=== PATIENT | male | born 1980 | race Caucasian/White ===

== ENCOUNTER 2020-10-12 03:31 | Inpatient (IN) ==
[2020-10-12] MEDS ORDERED: KETOROLAC TROMETHAMINE 15 MG/ML VIAL IV STA (04:01)
--- NOTE | 2020-10-12 04:09 | Emergency Department Note ---
History of Present Illness General Chief complaint: Chest Pain Stated complaint: +COVID/ CHEST PAIN SOB Time Seen by Provider: 10/12/20 03:37 Source: patient Mode of arrival: EMS Limitations: no limitations History of Present Illness This patient is a 40-year-old male who presents to the emergency department via EMS from [facility] for evaluation of chest pain. Patient tested positive for COVID-19 4 days ago. He states that he has had symptoms for about 2 weeks. He has had body aches, cough, fevers and malaise. He states that yesterday morning, he woke up and noticed some chest pain. The pain resolved and he felt fine throughout the day. He states that last night around 11 PM (4 hours prior to arrival), he was laying in bed and the pain came back. He describes this as a pressure across his chest. Pain is worse when he is laying flat. He rates his pain a 5/10. He states it has improved somewhat since it started. He re ports some associated shortness of breath. Patient states he is a diabetic and reports history of hypertension and hyperlipidemia. He reports a family history of heart disease in his mother, denies any personal history of heart disease. He is a smoker. He denies leg pain/swelling. Patient was given 324 mg aspirin prior to arrival by EMS. Home Medications Medication Instructions Recorded Confirmed Type acetaminophen [Tylenol Extra 500 mg PO TID PRN 10/12/20 10/12/20 History Strength] amlodipine 10 mg PO DAILY 10/12/20 10/12/20 History ammonium lactate 1 applic TOPICAL BID 10/12/20 10/12/20 History atorvastatin 80 mg PO HS 10/12/20 10/12/20 History cholecalciferol (vitamin D3) 25 mcg PO DAILY 10/12/20 10/12/20 History [Vitamin D3] gabapentin 1,200 mg PO BID 10/12/20 10/12/20 History guaifenesin [Mucosa] 400 mg PO TID PRN 10/12/20 10/12/20 History hydrochlorothiazide 12.5 mg PO QAM 10/12/20 10/12/20 History ibuprofen 400 mg PO TID PRN 10/12/20 10/12/20 History insulin NPH isoph U-100 human See Rx Instructions .ROUTE .COMPLEX 10/12/20 10/12/20 History [Novolin N NPH U-100 Insulin] insulin glargine [Lantus U-100 10 unit SUBCUT QAM 10/12/20 10/12/20 History Insulin] insulin regular human [Novolin R 0 unit SUBCUT AC 10/12/20 10/12/20 History Regular U-100 Insuln] levalbuterol tartrate [Xopenex HFA] 2 inh INHALATION Q6H PRN 10/12/20 10/12/20 History lisinopril 40 mg PO DAILY 10/12/20 10/12/20 History omeprazole 20 mg PO DAILYBB 10/12/20 10/12/20 History ondansetron HCl [Zofran] 4 mg PO TID PRN 10/12/20 10/12/20 History oxymetazoline 2 spray INTRANASAL Q12H PRN 10/12/20 10/12/20 History zinc sulfate [Orazinc] 220 mg PO BID 10/12/20 10/12/20 History Allergies Allergy/AdvReac Type Severity Reaction Status Date / Time Penicillins Allergy Unknown ON MED LIST Verified 10/12/20 03:42 Past Med/Surg History Medical History (Updated 10/12/20 @ 06:22 by Marybeth Alford PA-C) Asthma Dyslipidemia GERD (gastroesophageal reflux disease) Hypertension Peripheral neuropathy Type 2 diabetes mellitus Family History Mother Heart disease Social History Smoking Status: Current every day smoker Tobacco Type: E-cigarettes / Vaping Feels Safe at Home: Yes Review of Systems A total of 10 systems reviewed and were otherwise negative Physical Exam Vital Signs Vital Signs - 24 hr 10/12/20 03:40 10/12/20 04:00 10/12/20 04:30 Temperature 37 C Temperature Source Oral Pulse Rate 115 H 107 H 104 H Pulse Rate from SpO2 Sensor 106 H 97 H Pulse Rhythm Regular Respiratory Rate 20 20 20 Respiratory Effort / Characteristics Non-Labored Spontaneous Respiratory Depth Normal Respiratory Pattern Regular Blood Pressure 151/112 H 140/93 130/85 Blood Pressure Mean 125 108 100 Blood Pressure Position Lying Pulse Oximetry 99 97 95 Oxygen Delivery Method Room Air Room Air Sepsis Recent Fever Within 48 Hours No Sepsis New/Unexplained Change in Mental Status No Sepsis Action Taken by Nursing No Action Required 10/12/20 05:00 10/12/20 05:32 10/12/20 06:00 Temperature Temperature Source Pulse Rate 97 H 100 H 98 H Pulse Rate from SpO2 Sensor 97 H 104 H 98 H Pulse Rhythm Respiratory Rate 23 24 22 Respiratory Effort / Characteristics Respiratory Depth Respiratory Pattern Blood Pressure 144/79 H 135/78 129/69 Blood Pressure Mean 100 97 89 Blood Pressure Position Pulse Oximetry 95 96 97 Oxygen Delivery Method Room Air Room Air Room Air Sepsis Recent Fever Within 48 Hours Sepsis New/Unexplained Change in Mental Status Sepsis Action Taken by Nursing VITALS: Vitals are noted on the nurse's note and reviewed by myself. GENERAL: This is a 40-year-old male, sitting up in bed, uncomfortable appearing, well-developed well-nourished. SKIN: The skin was without rashes. EARS: External auditory canals clear, tympanic membranes pearly herrera without erythema or effusion bilaterally. EYES: Pupils equal round and reactive to light and accommodation. MOUTH: Mucous membranes moist. Tonsils are not enlarged. Pharynx without erythema or exudate. NECK: Supple without nuchal rigidity. No lymphadenopathy. HEART: Regular rate and rhythm without murmurs gallops or rubs. LUNGS: Clear to auscultation bilaterally without wheezes, rales or rhonchi. No retractions or accessory muscle use. ABDOMEN: Positive bowel sounds x 4. Soft, nontender to palpation. EXTREMITIES: No edema of the lower extremities. No calf tenderness. NEURO: Patient was alert and oriented to person place and time. Course Consultations [facility]ations Heparin Sodium/Dextrose (Heparin Sodium/Dextrose) 25,000 units in 500 mls @ 36 mls/hr IV .[id number] [facility]; Protocol Stop: 11/11/20 05:44 Last Admin: 10/12/20 06:00 Dose: 1,800 units/hr, 36 mls/hr Documented by: [id number] Cosigned by: [id number] Discontinued Medications Heparin Sodium/Dextrose (Heparin Iv Standard *No* Bolus) 1 ea IV ONE ONE; Protocol Stop: 10/12/20 05:35 Last Admin: 10/12/20 06:04 Dose: 1 ea Documented by: [id number] Ketorolac Tromethamine (Ketorolac Tromethamine 15 Mg/Ml Vial) 15 mg IV NOW STA Stop: 10/12/20 04:02 Last Admin: 10/12/20 04:12 Dose: 15 mg Documented by: [id number] Medical Decision Making Differential Diagnosis Differential diagnosis includes acute coronary syndrome, pulmonary embolism, pneumothorax, pericarditis, myocarditis, endocarditis, anxiety, musculoskeletal pain, GERD, costochondritis, pneumonia, among others. Home Medications Current Medication List: was personally reviewed by me Laboratory Data Attestation: I reviewed the patient's lab results. Result diagrams: 10/12/20 03:50 10/12/20 03:50 Lab Results 10/12/20 10/12/20 10/12/20 Range/Units 03:50 03:50 03:50 WBC 11.13 H (4.8-10.8) K/uL RBC 5.05 (4.7-6.1) M/uL Hgb 13.4 L (14.0-18.0) g/dL Hct 40.1 L (42-52) % MCV 79.4 L (80-100) fL MCH 26.5 (25-34) pg MCHC 33.4 (32-36) g/dL RDW Std Deviation 39.2 (36.4-46.3) fL RDW Coeff of Laureen 13.8 (11.5-14.5) % Plt Count 544 H (130-400) K/uL MPV 10.6 H (7.4-10.4) fL Immature Gran % (Auto) 0.4 % Neut % (Auto) 73.1 % Lymph % (Auto) 17.7 % Sawyer % (Auto) 7.6 % Eos % (Auto) 0.9 % Baso % (Auto) 0.3 % Neut # (Auto) 8.14 H (1.4-6.5) K/uL Lymph # (Auto) 1.97 (1.2-3.4) K/uL Sawyer # (Auto) 0.85 H (0.11-0.59) K/uL Eos # (Auto) 0.10 (0-0.5) K/uL Baso # (Auto) 0.03 (0-0.2) K/uL Immature Gran # (Auto) 0.04 H (0.00-0.02) K/uL D-Dimer 250 (0-500) ug/L FEU Sodium 135 L (136-145) mmol/L Potassium 3.7 (3.5-5.1) mmol/L Chloride 100 (98-107) mmol/L Carbon Dioxide 24 (21-32) mmol/L Anion Gap 11.0 (3-11) BUN 18 (7-18) mg/dl Creatinine 1.08 (0.6-1.4) mg/dl Est Cr Clr Drug Dosing 126.6 ml/min Est GFR ( Amer) 97.6 Est GFR (Non-Af Amer) 84.2 BUN/Creatinine Ratio 16.8 (10-20) Glucose 229 H (70-99) mg/dl Calcium 9.2 (8.5-10.1) mg/dl Total Bilirubin 0.5 (0.2-1) mg/dl AST 33 (15-37) U/L ALT 56 (12-78) U/L Alkaline Phosphatase 67 (45-117) U/L Troponin I 0.846 H* (0-0.045) ng/ml Total Protein 8.5 H (6.4-8.2) gm/dl Albumin 3.8 (3.4-5.0) gm/dl Globulin 4.7 H (2.5-4.0) gm/dl Albumin/Globulin Ratio 0.8 L (0.9-2) Imaging Data Attestation: I personally reviewed and interpreted this imaging study as follows: My Impression: CHEST 1 VIEW: Mild bilateral interstitial opacities. ECG Data Attestation: I personally reviewed and interpreted this ECG as follows: Indication: + chest pain Rate (beats per minute): 116 Rhythm: + sinus tachycardia ECG Intervals/blocks: + Normal QRS ECG ST segments: + T-wave inversions (Inferior) Comparison ECG Date: no prior available MDM Narrative Continuous compliance monitor: Order was placed for continuous compliance monitor. Patient was placed on the compliance monitor. Patient was noted to be in sinus tachycardia at an initial rate of 115 bpm. The patient is a 40-year-old male who presents today complaining of chest pain. Patient is an inmate at [facility] and tested positive for COVID-19 4 days ago. He currently complains of pain across the front of his chest which is worse when he lays back flat. His labs revealed a mild leukocytosis of 11.13, mild anemia with hemoglobin 13.4, thrombocytosis with platelet count of 544. D-dimer was not elevated. Glucose elevated at 229 consistent with patient's history of diabetes, otherwise no concerning electrolyte abnormalities. Patient's troponin found to be elevated at 0.846. EKG shows some T wave inversions, but no ST elevation. Patient was treated with aspirin prior to arrival. He was given Toradol here as I am suspicious of a viral myocarditis. Patient's case was discussed with Dr. Cortes, [facility] hospitalist, who agreed to evaluate the patient for further care. Impression & Plan Substernal chest pain, COVID-19, Elevated troponin I level Discharge Plan Visit Data Chief Complaint: Chest Pain Stated Complaint: +COVID/ CHEST PAIN SOB ED Provider: Michael [facility] ED Midlevel Provider: Marybeth Alford Discharge Problem: Substernal chest pain, COVID-19, Elevated troponin I level Forms Stand Alone Forms: My [facility] Prescriptions Prescriptions: No Action atorvastatin 80 mg Tablet 80 mg PO HS RF: 0 gabapentin 600 mg Tablet 1,200 mg PO BID RF: 0 Lantus U-100 Insulin 100 unit/mL Solution 10 unit SUBCUT QAM RF: 0 ondansetron HCl [Zofran] 4 mg Tablet 4 mg PO TID PRN (Reason: NAUSEA/VOMITING) RF: 0 acetaminophen [Tylenol Extra Strength] 500 mg Tablet 500 mg PO TID PRN (Reason: Pain) RF: 0 amlodipine 10 mg Tablet 10 mg PO DAILY RF: 0 Novolin R Regular U-100 Insuln 100 unit/mL Solution 0 unit SUBCUT AC RF: 0 ibuprofen 400 mg Tablet 400 mg PO TID PRN (Reason: COVID SYMPTOMS) RF: 0 Novolin N NPH U-100 Insulin 100 unit/mL Suspension See Rx Instructions .ROUTE .COMPLEX RF: 0 ammonium lactate 12 % Cream 1 applic TOPICAL BID RF: 0 lisinopril 40 mg Tablet 40 mg PO DAILY RF: 0 cholecalciferol (vitamin D3) [Vitamin D3] 25 mcg (1,000 unit) Capsule 25 mcg PO DAILY RF: 0 guaifenesin [Mucosa] 400 mg Tablet 400 mg PO TID PRN (Reason: Cold Symptoms) RF: 0 oxymetazoline 0.05 % [place],Non-Aerosol 2 spray INTRANASAL Q12H PRN (Reason: Nasal Congestion) RF: 0 levalbuterol tartrate [Xopenex HFA] 45 mcg/actuation Hfa Aerosol Inhaler 2 inh INHALATION Q6H PRN (Reason: Shortness Of Breath) RF: 0 zinc sulfate [Orazinc] 220 (50) mg Capsule 220 mg PO BID RF: 0 hydrochlorothiazide 12.5 mg Tablet 12.5 mg PO QAM RF: 0 omeprazole 20 mg Tablet,Delayed Release (Dr/Ec) 20 mg PO DAILYBB RF: 0
[2020-10-12 04:17] LABS: Basophils # (auto) 0.03 K/uL (0-0.2); Basophils % (auto) 0.3 %; Eosinophils % (auto) 0.9 %; Hematocrit (blood only) 40.1 % (42-52); Hemoglobin 13.4 g/dL (14.0-18.0); Immature Granulocytes # (auto) 0.04 K/uL (0.00-0.02); Immature Granulocytes % (auto) 0.4 %; Lymphocytes # (auto) 1.97 K/uL (1.2-3.4); Lymphocytes % (auto) 17.7 %; Mean Corpuscular Hemoglobin 26.5 pg (25-34); Mean Corpuscular Hgb Conc 33.4 g/dL (32-36); Mean Corpuscular Volume 79.4 fL (80-100); Mean Platelet Volume 10.6 fL (7.4-10.4); Monocytes # (auto) 0.85 K/uL (0.11-0.59); Monocytes % (auto) 7.6 %; Neutrophils # (auto) 8.14 K/uL (1.4-6.5); Neutrophils % (auto) 73.1 %; Platelet Count 544 K/uL (130-400); RDW Coefficient of Variation 13.8 % (11.5-14.5); RDW Standard Deviation 39.2 fL (36.4-46.3); Red Blood Count 5.05 M/uL (4.7-6.1); White Blood Count 11.13 K/uL (4.8-10.8)
[2020-10-12 04:28] LABS: D Dimer 250 ug/L FEU (0-500)
[2020-10-12 04:37] LABS: Albumin Level 3.8 gm/dl (3.4-5.0); BUN Creatinine Ratio 16.8 (10-20); Calcium 9.2 mg/dl (8.5-10.1); Creatinine Clr Calc Pharmacy 126.6 ml/min; Est GFR (African American) 97.6; Est GFR (Non-African American) 84.2; Potassium 3.7 mmol/L (3.5-5.1)
[2020-10-12 04:45] LABS: Albumin Globulin Ratio 0.8 (0.9-2); Bilirubin,Total 0.5 mg/dl (0.2-1); Globulin 4.7 gm/dl (2.5-4.0); Total Protein 8.5 gm/dl (6.4-8.2); Troponin I 0.846 ng/ml (0-0.045)
[2020-10-12] MEDS ORDERED: Heparin IV Adult Wt-Based Standard *NO* Bolus Protocol IV ONE (05:34)
[2020-10-12] MEDS ORDERED: HEPARIN SODIUM/DEXTROSE 25,000 UNITS/500 ML BAG IV SCH (05:45)
--- NOTE | 2020-10-12 06:02 | History & Physical Report ---
Date of Service October 12, 2020 Assessment & Plan (1) Elevated troponin I level: Elevated troponin I level with chest pain/hypertension- Main differential is non-STEMI versus COVID-19 myocarditis. The patient will be admitted to telemetry for serial cardiac enzymes, serial EKG's, cardiac rhythm monitoring and a 2-D echocardiogram with Dopplers. Start heparin drip IV standard dosing without bolus to address both potential issues Continue amlodipine 10 mg daily, lisinopril 40 mg daily, aspirin 81 mg daily Hold HCTZ He did receive Toradol 15 mg IV from the ED, to hold on any further doses Consult cardiology Present on Admission?: Yes (2) COVID-19: Give a single dose of dexamethasone 6 mg IV now. Depending upon response will determine whether the patient continues with dexamethasone 6 mg IV daily Present on Admission?: Yes (3) Type 2 diabetes mellitus: Increase Lantus insulin from 10 units to 20 units subcu every morning. Hold insulin NPH. Place on Accu-Cheks before meals and at bedtime with NovoLog coverage for scale Present on Admission?: Yes (4) Dyslipidemia: Continue atorvastatin 80 mg in the evening Present on Admission?: Yes (5) Hypertension: See above Present on Admission?: Yes (6) GERD (gastroesophageal reflux disease): Change omeprazole to pantoprazole Present on Admission?: Yes (7) Asthma: Continue Xopenex HFA 2 puffs every 6 hours as needed Present on Admission?: Yes (8) Peripheral neuropathy: Continue gabapentin 1200 mg p.o. twice daily Present on Admission?: Yes History of Present Illness Chief Complaint: The patient is brought to the emergency department from [facility] for assessment of chest pain that began yesterday, that did not improve last evening, then worsened upon waking up this morning. Primary Care Provider: [facility] The patient is a 40-year-old male with a past medical history of hypertension, hyperlipidemia, peripheral neuropathy, insulin dependent diabetes mellitus, asthma, GERD, allergic rhinitis and recent diagnosis of Covid 19 infection 4 days ago. He reports his symptoms of Covid infection began about 2 weeks ago, that is primarily were concerning for generalized fatigue and weakness, and body aches and nonproductive cough. Yesterday was the first that he developed chest pain, and as stated above, it did resolve, but did return this morning after awakening. He has a family history of his mother with having had a heart attack, but no other family members with coronary disease. Allergies Allergy/AdvReac Type Severity Reaction Status Date / Time Penicillins Allergy Unknown ON MED LIST Verified 10/12/20 03:42 Home Medications Medication Instructions Recorded Confirmed Type acetaminophen [Tylenol Extra 500 mg PO TID PRN 10/12/20 10/12/20 History Strength] amlodipine 10 mg PO DAILY 10/12/20 10/12/20 History ammonium lactate 1 applic TOPICAL BID 10/12/20 10/12/20 History atorvastatin 80 mg PO HS 10/12/20 10/12/20 History cholecalciferol (vitamin D3) 25 mcg PO DAILY 10/12/20 10/12/20 History [Vitamin D3] gabapentin 1,200 mg PO BID 10/12/20 10/12/20 History guaifenesin [Mucosa] 400 mg PO TID PRN 10/12/20 10/12/20 History hydrochlorothiazide 12.5 mg PO QAM 10/12/20 10/12/20 History ibuprofen 400 mg PO TID PRN 10/12/20 10/12/20 History insulin NPH isoph U-100 human See Rx Instructions .ROUTE .COMPLEX 10/12/20 10/12/20 History [Novolin N NPH U-100 Insulin] insulin glargine [Lantus U-100 10 unit SUBCUT QAM 10/12/20 10/12/20 History Insulin] insulin regular human [Novolin R 0 unit SUBCUT AC 10/12/20 10/12/20 History Regular U-100 Insuln] levalbuterol tartrate [Xopenex HFA] 2 inh INHALATION Q6H PRN 10/12/20 10/12/20 History lisinopril 40 mg PO DAILY 10/12/20 10/12/20 History omeprazole 20 mg PO DAILYBB 10/12/20 10/12/20 History ondansetron HCl [Zofran] 4 mg PO TID PRN 10/12/20 10/12/20 History oxymetazoline 2 spray INTRANASAL Q12H PRN 10/12/20 10/12/20 History zinc sulfate [Orazinc] 220 mg PO BID 10/12/20 10/12/20 History Past Med/Surg History Medical History Dyslipidemia Hypertension Type 2 diabetes mellitus Family History Mother Heart disease Social History Smoking Status: Current every day smoker Tobacco Type: E-cigarettes / Vaping Feels Safe at Home: Yes Review of Systems Review of Systems: The patient denies palpitations, lower extremity swelling, sore throat, chills, sweats, nausea, vomiting, diarrhea , constipation, abdominal pain, pelvic pain, blood in urine or stool, dysuria, urinary frequency or urgency, lightheadedness, dizziness, headache, memory loss, loss of consciousness, rash, abnormal bruising or bleeding, imbalance, focal or generalized weakness, numbness or tingling in arms or legs, back or neck pain, or night sweats. The review of systems is otherwise negative other than for that already noted above, and at least 10 systems have been reviewed. Physical Exam Physical Exam: The patient is awake, alert and oriented 3, well developed and well nourished, normocephalic and atraumatic, lying in bed and in no acute distress. HEENT--PERRL, EOMI, mucous membranes and oropharynx normal. Neck--supple. No JVD. No bruits. Thyroid normal, trachea midline, no adenopathy. Heart--normal S1 and S2. No murmurs, rubs or gallops. Lungs--clear bilaterally, no respiratory distress, no accessory muscle use. Abdomen--normal bowel sounds and soft. Nontender. Nondistended. Morbidly obese Extremities--no cyanosis or clubbing. No edema. Dermatologic--normal skin turgor, normal color, no abnormal lymph nodes, no rash. Neurologic--cranial nerves II through XII grossly intact. Rheumatologic--normal range of motion. Psychiatric--normal affect. Results & Data Results & Data ([facility]) Vital Signs (Past 12 Hours) Vital Signs Temp Pulse Resp BP Pulse Ox 10/12/20 05:00 97 H 23 144/79 H 95 10/12/20 04:30 104 H 20 130/85 95 10/12/20 04:00 107 H 20 140/93 97 10/12/20 03:40 98.6 F 115 H 20 151/112 H 99 Laboratory Results Laboratory Results WBC 11.13 K/uL (4.8-10.8) H 10/12/20 03:50 RBC 5.05 M/uL (4.7-6.1) 10/12/20 03:50 Hgb 13.4 g/dL (14.0-18.0) L 10/12/20 03:50 Hct 40.1 % (42-52) L 10/12/20 03:50 MCV 79.4 fL (80-100) L 10/12/20 03:50 MCH 26.5 pg (25-34) 10/12/20 03:50 MCHC 33.4 g/dL (32-36) 10/12/20 03:50 RDW Std Deviation 39.2 fL (36.4-46.3) 10/12/20 03:50 RDW Coeff of Laureen 13.8 % (11.5-14.5) 10/12/20 03:50 Plt Count 544 K/uL (130-400) H 10/12/20 03:50 MPV 10.6 fL (7.4-10.4) H 10/12/20 03:50 Immature Gran % (Auto) 0.4 % 10/12/20 03:50 Neut % (Auto) 73.1 % 10/12/20 03:50 Lymph % (Auto) 17.7 % 10/12/20 03:50 Ralls % (Auto) 7.6 % 10/12/20 03:50 Eos % (Auto) 0.9 % 10/12/20 03:50 Baso % (Auto) 0.3 % 10/12/20 03:50 Neut # (Auto) 8.14 K/uL (1.4-6.5) H 10/12/20 03:50 Lymph # (Auto) 1.97 K/uL (1.2-3.4) 10/12/20 03:50 Ralls # (Auto) 0.85 K/uL (0.11-0.59) H 10/12/20 03:50 Eos # (Auto) 0.10 K/uL (0-0.5) 10/12/20 03:50 Baso # (Auto) 0.03 K/uL (0-0.2) 10/12/20 03:50 Immature Gran # (Auto) 0.04 K/uL (0.00-0.02) H 10/12/20 03:50 D-Dimer 250 ug/L FEU (0-500) 10/12/20 03:50 Sodium 135 mmol/L (136-145) L 10/12/20 03:50 Potassium 3.7 mmol/L (3.5-5.1) 10/12/20 03:50 Chloride 100 mmol/L (98-107) 10/12/20 03:50 Carbon Dioxide 24 mmol/L (21-32) 10/12/20 03:50 Anion Gap 11.0 (3-11) 10/12/20 03:50 BUN 18 mg/dl (7-18) 10/12/20 03:50 Creatinine 1.08 mg/dl (0.6-1.4) 10/12/20 03:50 Est Cr Clr Drug Dosing 126.6 ml/min 10/12/20 03:50 Est GFR ( Amer) 97.6 10/12/20 03:50 Est GFR (Non-Af Amer) 84.2 10/12/20 03:50 BUN/Creatinine Ratio 16.8 (10-20) 10/12/20 03:50 Glucose 229 mg/dl (70-99) H 10/12/20 03:50 Calcium 9.2 mg/dl (8.5-10.1) 10/12/20 03:50 Total Bilirubin 0.5 mg/dl (0.2-1) 10/12/20 03:50 AST 33 U/L (15-37) 10/12/20 03:50 ALT 56 U/L (12-78) 10/12/20 03:50 Alkaline Phosphatase 67 U/L (45-117) 10/12/20 03:50 Troponin I 0.846 ng/ml (0-0.045) H* 10/12/20 03:50 Total Protein 8.5 gm/dl (6.4-8.2) H 10/12/20 03:50 Albumin 3.8 gm/dl (3.4-5.0) 10/12/20 03:50 Globulin 4.7 gm/dl (2.5-4.0) H 10/12/20 03:50 Albumin/Globulin Ratio 0.8 (0.9-2) L 10/12/20 03:50 Code Status & VTE Plan Code Status Full code VTE Prophylaxis Plan VTE Prophylaxis will be ordered: Yes PG Care Time/CCT Total # of Minutes Spent Total Time Spent with Patient: Total time spent is greater than 50% in coordination of care (as documented) at patient's floor/unit and/or counseling patient: Coding Level of Care Code 17866 Initial Inpt Care Lvl 3 Diagnoses Elevated troponin I level R77.8 COVID-19 U07.1 Type 2 diabetes mellitus E11.9 Dyslipidemia E78.5 Hypertension I10 GERD (gastroesophageal reflux disease) K21.9 Asthma J45.909 Peripheral neuropathy G62.9
[2020-10-12 06:34] LABS: Partial Thromboplastin Ratio 1.1; Partial Thromboplastin Time 27.9 Seconds (21.0-31.0)
--- NOTE | 2020-10-12 06:45 | XRay Report ---
XR chest 1V portable HISTORY: 40 years-old Male Chest Pain acute atypical chest pain COMPARISON: None TECHNIQUE: Portable AP view of the chest FINDINGS: Cardiomediastinal and hilar silhouettes are within normal limits. No pneumothorax, pleural effusion, overt pulmonary edema or lobar airspace consolidation. Questioned subtle interstitial opacities. Bone s of the chest appear grossly intact. IMPRESSION: Questioned subtle interstitial opacities may be secondary to summation density versus an interstitial pneumonitis. ACT 112: Negative or not required by law. The above report was generated using voice recognition software. It may contain grammatical, syntax o r spelling errors. Electronically signed by: Glen Cifuentes M.D. 10/12/2020 6:44 AM
[2020-10-12] MEDS ORDERED: IBUPROFEN 200 MG TAB PO PRN (07:46)
[2020-10-12] MEDS ORDERED: ACETAMINOPHEN HOME PACK 500 MG TABLET PO PRN (07:46)
[2020-10-12] MEDS ORDERED: GLUCOSE 10 TABS/TUBE PO PRN (07:46)
[2020-10-12] MEDS ORDERED: GLUCAGON FOR INJ 1 MG VIAL SQ PRN (07:46)
[2020-10-12] MEDS ORDERED: LEVALBUTEROL TARTRATE 15 GM HFA.AER.AD INH PRN (07:46)
[2020-10-12] MEDS ORDERED: ONDANSETRON INJ 2 MG/ML 2 ML VIAL IV PRN (07:46)
[2020-10-12] MEDS ORDERED: GLUCOSE 40% GEL 15 GM TUBE PO PRN (07:46)
[2020-10-12] MEDS ORDERED: ACETAMINOPHEN 325 MG TAB PO PRN (07:46)
[2020-10-12] MEDS ORDERED: DEXTROSE 50% 50 ML SYRINGE IV PRN (07:46)
[2020-10-12] MEDS ORDERED: CARBOHYDRATES FOR HYPOGLYCEMIA PO PRN (07:46)
[2020-10-12] MEDS ORDERED: NITROGLYCERIN SL 0.4 MG/TAB TAB SL PRN (07:46)
[2020-10-12] MEDS: ZINC SULFATE 220 MG CAPSULE PO SCH ×2 (08:32→20:51)
[2020-10-12] MEDS: amLODIPine BESYLATE 5 MG TAB PO SCH (08:32)
[2020-10-12] MEDS: CHOLECALCIFEROL 1,000 UNITS 25 MCG TAB PO SCH (08:32)
[2020-10-12] MEDS: lisinopril 40 MG TAB PO SCH (08:33)
[2020-10-12] MEDS: GABAPENTIN 600 MG TAB PO SCH ×2 (08:33→20:50)
[2020-10-12] MEDS ORDERED: AMMONIUM LACTATE 12% LOTION 225 GM BTL EXT SCH (09:00)
[2020-10-12] MEDS: INSULIN ASPART 100 UNITS/ML 3 ML PEN SC SCH ×4 (09:23→20:53)
[2020-10-12] MEDS: INSULIN GLARGINE SOLOSTAR 100 UNITS/ML 3 ML PEN SQ SCH (09:24)
[2020-10-12] MEDS: AMMONIUM LACTATE 12% LOTION 225 GM BTL EXT SCH ×2 (09:27→20:49)
[2020-10-12 09:46] LABS: Chol HDL Ratio 4; Cholesterol 162 mg/dl (0-200); HDL Cholesterol 38 mg/dl; LDL Cholesterol Calculated 90 mg/dl; Triglycerides 171 mg/dl (0-150); VLDL Cholesterol 34 mg/dl
[2020-10-12] MEDS ORDERED: METOPROLOL TARTRATE 25 MG TAB PO STA (12:18)
[2020-10-12] MEDS ORDERED: ASPIRIN 81 MG CHEW PO STA (12:20)
[2020-10-12 12:29] LABS: Partial Thromboplastin Time 52.5 Seconds (21.0-31.0)
--- NOTE | 2020-10-12 13:01 | Pre Anesthesia Assessment ---
Date of Service October 12, 2020 Pre Sedation Assessment Vital Signs Temp Pulse Pulse Resp BP BP BP 10/12/20 11:40 37 C 88 18 127/80 10/12/20 07:41 37.1 C 106 H 18 161/92 H 10/12/20 06:30 100 H 22 121/69 10/12/20 06:00 98 H 22 129/69 10/12/20 05:32 100 H 24 135/78 10/12/20 05:00 97 H 23 144/79 H 10/12/20 04:30 104 H 20 130/85 10/12/20 04:00 107 H 20 140/93 10/12/20 03:40 37 C 115 H 20 151/112 H Pulse Ox 10/12/20 11:40 97 10/12/20 07:41 100 10/12/20 06:30 97 10/12/20 06:00 97 10/12/20 05:32 96 10/12/20 05:00 95 10/12/20 04:30 95 10/12/20 04:00 97 10/12/20 03:40 99 Cardiovascular RRR, no murmur, no edema Respiratory normal respiratory effort, lungs clear to auscultation Pre-Sedation Airway Assessment Smoking Status: Current every day smoker Mallampati Class: II ASA: ASA3 NPO Status Date of Last Intake of Fluids: 10/12/20 Time of Last Intake of Fluids: 12:00 Date of Last Intake of Solid Food: 10/12/20 Time of Last Intake of Solid Foods: 12:00 Last Intake of Solids Comment: Partial lunch; unstable angina at rest last night. cath later today. Procedure Planning Contraindications for Sedation: none Current Medications Reviewed: Yes Notes The planned sedation has been discussed with the patient. Informed Consent was obtained. I have identified the patient, determined the appropriateness of se dation and have assessed the patient immediately prior to the procedure. All medicine(s) and interventions are by my order.
--- NOTE | 2020-10-12 13:27 | Cardiology Consultation ---
Date of Consultation October 12, 2020 Assessment & Plan (1) Non-ST elevation (NSTEMI) myocardial infarction: (2) Dyslipidemia: (3) Hypertension: (4) COVID-19: ASSESSMENT/PLAN: 1. NSTEMI: Symptoms classic for angina over the past 6 months with acute worsening last night with rest symptoms. Repeat troponin more significantly elevated at 7.65. Apical wall motion abnormality and anterior T-wave abnormalities suggest LAD CAD. Recommended cardiac catheterization. Risks and benefits were discussed with him in detail. He was made aware that CT surgery is not available this facility. Recommended aspirin and metoprolol 25 mg x 1 now. Optimize medical therapy. Continue high-intensity statin therapy, FABY- inhibitor. Start metoprolol 25 mg twice daily. On heparin drip as per primary service. 2. Dyslipidemia: Continue high-intensity statin therapy. LDL 90. Will replace atorvastatin with Crestor 40 mg daily. 3. Hypertension: Blood pressure has mostly been normotensive. Adding beta- lucrecia as above. Continue other outpatient medications. 4. COVID-19 infection: Reportedly had symptoms began approximately 14 days ago with positive test 4 days ago at his correctional facility. As per primary service. 5. Disposition: Patient care discussed with Dr. Sevilla of the primary hospitalist service. Cardiology will continue to follow. Cardiac catheterization today. Highly complex medical issues. Thank you for allowing me to participate in the care of your patient. Please call for any other questions or concerns. Sincerely, Carlos Marion M.D. History of Present Illness Reason for Consultation: NSTEMI Requesting Physician: Dr. Cortes Attending Physician: Dr. Sevilla History of Present Illness Mr. Chavez is a 40-year-old gentleman with a history significant for insulin- dependent type 2 diabetes, hypertension, dyslipidemia, tobacco abuse, and family history of CAD. He was admitted on 10/12/2020 with chest discomfort and elevated troponin. Cardiology was consulted for NSTEMI versus COVID-19 myocarditis. For the past 6 months, he has been experiencing exertional chest discomfort in the substernal area that can sometimes radiate to the neck and jaw. There is also associated shortness of breath. He sometimes has to stop to catch his breath before continuing ambulation. Last night, at approximately 11:00 p.m. while in bed, he experienced the same chest discomfort however more severe. It persisted for approximately 4 hours before subsiding. There was associated shortness of breath but no diaphoresis. The pain once again radiated to his neck and jaw. He described a substernal discomfort as a burning sensation. Yana baker remaining at the correctional facility, ambulation last night worsen his symptoms. He was given aspirin and transferred to the emergency department for further evaluation. By the time he arrived here, he had no chest discomfort. He has not had any further chest discomfort. He was placed on a heparin drip by the admitting hospitalist service. His initial troponin was 0.846. Initial ECG demonstrated inferior lateral T-wave abnormality, but no significant ST depression or elevation. Echocardiogram and repeat ECG were personally ordered. His echocardiogram demonstrated apical akinesis and ECG demonstrated anterior and lateral T-wave inversion, new compared to initial ECG. He remained in sinus rhythm. He denies melena, hematochezia, hematuria, or other bleeding. He denies edema, syncope, near-syncope, orthopnea, or palpitations. Approximately 14 days ago, he developed symptoms of shortness of breath, fatigue, myalgias, and nonproductive cough. He also had fevers which he b elieves lasted for approximately 10 days before subsiding. He was diagnosed with COVID-19 infection approximately 4 days ago and feels much better in that regard. Review of systems: As above. Review of systems otherwise negative/unremarkable. Family history: Mother had [place] in her 40s. He has 1 younger sister. Social history: He has smoked for many years and continues to smoke. No significant alcohol. No IV drugs. Not . No children. Originally from [facility]. Currently residing at [facility]. Senior Living guards accompanied him in his hospital room. Allergies Allergy/AdvReac Type Severity Reaction Status Date / Time Penicillins Allergy Unknown ON MED LIST Verified 10/12/20 03:42 Home Medications Medication Instructions Recorded Confirmed Type acetaminophen [Tylenol Extra 500 mg PO TID PRN 10/12/20 10/12/20 History Strength] amlodipine 10 mg PO DAILY 10/12/20 10/12/20 History ammonium lactate 1 applic TOPICAL BID 10/12/20 10/12/20 History atorvastatin 80 mg PO HS 10/12/20 10/12/20 History cholecalciferol (vitamin D3) 25 mcg PO DAILY 10/12/20 10/12/20 History [Vitamin D3] gabapentin 1,200 mg PO BID 10/12/20 10/12/20 History guaifenesin [Mucosa] 400 mg PO TID PRN 10/12/20 10/12/20 History hydrochlorothiazide 12.5 mg PO QAM 10/12/20 10/12/20 History ibuprofen 400 mg PO TID PRN 10/12/20 10/12/20 History insulin NPH isoph U-100 human See Rx Instructions .ROUTE .COMPLEX 10/12/20 10/12/20 History [Novolin N NPH U-100 Insulin] insulin glargine [Lantus U-100 10 unit SUBCUT QAM 10/12/20 10/12/20 History Insulin] insulin regular human [Novolin R 0 unit SUBCUT AC 10/12/20 10/12/20 History Regular U-100 Insuln] levalbuterol tartrate [Xopenex HFA] 2 inh INHALATION Q6H PRN 10/12/20 10/12/20 History lisinopril 40 mg PO DAILY 10/12/20 10/12/20 History omeprazole 20 mg PO DAILYBB 10/12/20 10/12/20 History ondansetron HCl [Zofran] 4 mg PO TID PRN 10/12/20 10/12/20 History oxymetazoline 2 spray INTRANASAL Q12H PRN 10/12/20 10/12/20 History zinc sulfate [Orazinc] 220 mg PO BID 10/12/20 10/12/20 History Patient History Medical History (Updated 10/12/20 @ 13:28 by Timothy Marion MD) Asthma Dyslipidemia GERD (gastroesophageal reflux disease) Hypertension Peripheral neuropathy Type 2 diabetes mellitus Family History Mother Heart disease Social History Smoking Status: Current every day smoker Tobacco Type: E-cigarettes / Vaping Cigarettes Per Day: 2 e cigarettes every 2 weeks; Hx Alcohol Use: No Hx Substance Use: Yes Last Used Substance: Unknown Preferred Language: French Communication Ability: Effective Trust Operations Assistant Required: No Beliefs That Will Affect Care: None Current Living Situation: Other Current Living Situation Comment: Senior Living Feels Safe at Home: Yes Assistive Devices: None Physical Exam Physical Exam: Gen.: No acute distress. Alert and oriented. HEENT: Anicteric sclera. Neck: No JVD. No bruits. Normal carotid upstrokes bilaterally. Cardiac: PMI was nonpalpable. No ventricular heave. Regular rate and rhythm. Normal S1-S2. No murmurs, rubs, or gallops. Pulmonary: Clear to auscultation bilaterally without wheezes, rales, or rhonchi. Abdomen: Soft, nontender, nondistended, with normoactive bowel sounds. No bruits noted. Extremities: 2+ radial pulses bilaterally. 2+ posterior tibialis pulses bilaterally. No edema or cyanosis. No palpable cords. Psychiatric: Affect appears appropriate. Results & Data ([facility]) Vital Signs (Past 12 Hours) Vital Signs Temp Pulse Pulse Resp BP BP Pulse Ox 10/12/20 07:41 37.1 C 106 H 18 161/92 H 100 10/12/20 06:30 100 H 22 121/69 97 10/12/20 06:00 98 H 22 129/69 97 10/12/20 05:32 100 H 24 135/78 96 10/12/20 05:00 97 H 23 144/79 H 95 10/12/20 04:30 104 H 20 130/85 95 10/12/20 04:00 107 H 20 140/93 97 10/12/20 03:40 37 C 115 H 20 151/112 H 99 Laboratory Results Laboratory Results - last 24 hr 10/12/20 10/12/20 10/12/20 03:50 03:50 03:50 WBC 11.13 H RBC 5.05 Hgb 13.4 L Hct 40.1 L MCV 79.4 L MCH 26.5 MCHC 33.4 RDW Std Deviation 39.2 RDW Coeff of Laureen 13.8 Plt Count 544 H MPV 10.6 H Immature Gran % (Auto) 0.4 Neut % (Auto) 73.1 Lymph % (Auto) 17.7 Leon % (Auto) 7.6 Eos % (Auto) 0.9 Baso % (Auto) 0.3 Neut # (Auto) 8.14 H Lymph # (Auto) 1.97 Leon # (Auto) 0.85 H Eos # (Auto) 0.10 Baso # (Auto) 0.03 Immature Gran # (Auto) 0.04 H APTT PTT Ratio D-Dimer 250 Sodium 135 L Potassium 3.7 Chloride 100 Carbon Dioxide 24 Anion Gap 11.0 BUN 18 Creatinine 1.08 Est Cr Clr Drug Dosing 126.6 Est GFR ( Amer) 97.6 Est GFR (Non-Af Amer) 84.2 BUN/Creatinine Ratio 16.8 Glucose 229 H POC Glucose Calcium 9.2 Total Bilirubin 0.5 AST 33 ALT 56 Alkaline Phosphatase 67 Troponin I 0.846 H* Total Protein 8.5 H Albumin 3.8 Globulin 4.7 H Albumin/Globulin Ratio 0.8 L Triglycerides Cholesterol LDL Cholesterol, Calc VLDL Cholesterol, Calc HDL Cholesterol Cholesterol/HDL Ratio 10/12/20 10/12/20 10/12/20 03:50 07:49 08:55 WBC RBC Hgb Hct MCV MCH MCHC RDW Std Deviation RDW Coeff of Laureen Plt Count MPV Immature Gran % (Auto) Neut % (Auto) Lymph % (Auto) Leon % (Auto) Eos % (Auto) Baso % (Auto) Neut # (Auto) Lymph # (Auto) Leon # (Auto) Eos # (Auto) Baso # (Auto) Immature Gran # (Auto) APTT 27.9 PTT Ratio 1.1 D-Dimer Sodium Potassium Chloride Carbon Dioxide Anion Gap BUN Creatinine Est Cr Clr Drug Dosing Est GFR ( Amer) Est GFR (Non-Af Amer) BUN/Creatinine Ratio Glucose POC Glucose 218 H Calcium Total Bilirubin AST ALT Alkaline Phosphatase Troponin I Total Protein Albumin Globulin Albumin/Globulin Ratio Triglycerides 171 H Cholesterol 162 LDL Cholesterol, Calc 90 VLDL Cholesterol, Calc 34 HDL Cholesterol 38 Cholesterol/HDL Ratio 4 10/12/20 10/12/20 10/12/20 09:43 11:39 11:46 WBC RBC Hgb Hct MCV MCH MCHC RDW Std Deviation RDW Coeff of Laureen Plt Count MPV Immature Gran % (Auto) Neut % (Auto) Lymph % (Auto) Leon % (Auto) Eos % (Auto) Baso % (Auto) Neut # (Auto) Lymph # (Auto) Leon # (Auto) Eos # (Auto) Baso # (Auto) Immature Gran # (Auto) APTT 52.5 H* PTT Ratio 2.0 D-Dimer Sodium Potassium Chloride Carbon Dioxide Anion Gap BUN Creatinine Est Cr Clr Drug Dosing Est GFR ( Amer) Est GFR (Non-Af Amer) BUN/Creatinine Ratio Glucose POC Glucose 222 H Calcium Total Bilirubin AST ALT Alkaline Phosphatase Troponin I 7.650 H* Total Protein Albumin Globulin Albumin/Globulin Ratio Triglycerides Cholesterol LDL Cholesterol, Calc VLDL Cholesterol, Calc HDL Cholesterol Cholesterol/HDL Ratio Diagnostic Findings Telemetry personally reviewed: Sinus rhythm. Sinus tachycardia. No arrhythmia. ECG personally reviewed: ECG 10/12/2020 at 11:53 a.m.: NSR at 90 beats per minute. Possible inferior infarct. Anterior and lateral T-wave inversion, new from prior ECG on 10/12/2020 at 3:40 a.m.. Prolonged QT. Echo reviewed from 10/12/2020: Preliminary review demonstrated apical akinesis with LV systolic function probably low-normal but formal review to follow. No significant valvular abnormalities noted on preliminary review. Chest x-ray 10/12/2020: Questioned subtle interstitial opacities may be secondary to summation density versus interstitial pneumonitis per Radiology. Medications Administered Current Inpatient Medications Acetaminophen (Acetaminophen 325 Mg Tab) 650 mg PO Q4H PRN PRN Reason: Pain or Fever Stop: 11/11/20 07:45 Amlodipine Besylate (Amlodipine Besylate 5 Mg Tab) 10 mg PO DAILY NAVIN Stop: 11/11/20 08:59 Last Admin: 10/12/20 08:32 Dose: 10 mg Documented by: Atorvastatin Calcium (Atorvastatin 40 Mg Tab) 80 mg PO HS NAVIN Stop: 11/11/20 20:59 Dextrose (Dextrose 50% 50 Ml Syringe) 25 - 50 ml IV UD PRN; Protocol PRN Reason: Hypoglycemia Protocol Stop: 11/11/20 07:45 Gabapentin (Gabapentin 600 Mg Tab) 1,200 mg PO BID NAVIN Stop: 11/11/20 08:59 Last Admin: 10/12/20 08:33 Dose: 1,200 mg Documented by: Glucagon (Glucagon For Inj 1 Mg Vial) 1 mg SQ UD PRN; Protocol PRN Reason: Hypoglycemia Protocol Stop: 11/11/20 07:45 Glucose (Glucose 10 Tabs/Tube) 4 - 8 tabs PO UD PRN; Protocol PRN Reason: Hypoglycemia Protocol Stop: 11/11/20 07:45 Glucose (Glucose 40% Gel 15 Gm Tube) 15 - 30 gm PO UD PRN; Protocol PRN Reason: Hypoglycemia Protocol Stop: 11/11/20 07:45 Heparin Sodium/Dextrose (Heparin Sodium/Dextrose) 25,000 units in 500 mls @ 36 mls/hr IV .[id number] [facility]; Protocol Stop: 11/11/20 05:44 Last Admin: 10/12/20 06:00 Dose: 1,800 units/hr, 36 mls/hr Documented by: Ibuprofen (Ibuprofen 200 Mg Tab) 400 mg PO TID PRN PRN Reason: COVID SYMPTOMS Stop: 11/11/20 07:45 Insulin Aspart (Insulin Aspart 100 Units/Ml 3 Ml Pen) 0 units SC ACHS [facility] Stop: 11/11/20 07:45 Last Admin: 10/12/20 12:57 Dose: 7 units Documented by: Insulin Glargine (Insulin Glargine Solostar 100 Units/Ml 3 Ml Pen) 20 units SQ QAM [facility] Stop: 11/11/20 08:59 Last Admin: 10/12/20 09:24 Dose: 20 units Documented by: Lactic Acid (Ammonium Lactate 12% Lotion 225 Gm Btl) 1 gm EXT BID [facility] Stop: 11/11/20 08:59 Last Admin: 10/12/20 09:27 Dose: Not Given Documented by: Levalbuterol HCl (Levalbuterol Tartrate 15 Gm Hfa.Aer.Ad) 2 puffs INH Q6H PRN PRN Reason: Shortness Of Breath Stop: 11/11/20 07:45 Lisinopril (Lisinopril 40 Mg Tab) 40 mg PO DAILY [facility] Stop: 11/11/20 08:59 Last Admin: 10/12/20 08:33 Dose: 40 mg Documented by: Miscellaneous (Carbohydrates For Hypoglycemia ) 15 - 30 gm PO UD PRN PRN Reason: Hypoglycemia Protocol Stop: 11/11/20 07:45 Nitroglycerin (Nitroglycerin Sl 0.4 Mg/Tab Tab) 0.4 mg SL UD PRN PRN Reason: Chest Pain Stop: 11/11/20 07:45 Ondansetron HCl (Ondansetron Inj 2 Mg/Ml 2 Ml Vial) 4 mg IV Q6H PRN PRN Reason: Nausea Stop: 11/11/20 07:45 Pantoprazole Sodium ([facility] 40 Mg Tab) [facility] Stop: 11/12/20 06:29 Vitamin D (Cholecalciferol 1,000 Units 25 Mcg Tab) 1,000 units PO DAILY [facility] Stop: 11/11/20 08:59 Last Admin: 10/12/20 08:32 Dose: 1,000 units Documented by: Zinc Sulfate (Zinc Sulfate 220 Mg Capsule) 220 mg PO BID NAVIN Stop: 11/11/20 08:59 Last Admin: 10/12/20 08:32 Dose: 220 mg Documented by: PG Care Time/CCT Total # of Minutes Spent Total Time Spent with Patient: Total time spent is greater than 50% in coordina tion of care (as documented) at patient's floor/unit and/or counseling patient: Coding Level of Care Code 44075 Inpt Consult Level 5 Diagnoses Non-ST elevation (NSTEMI) myocardial infarction I21.4 Dyslipidemia E78.5 Hypertension I10 COVID-19 U07.1
--- NOTE | 2020-10-12 14:08 | XCELERA ---
[id number]
[2020-10-12] MEDS ORDERED: HEPARIN (PORCINE) 1000 UNIT/ML 10 ML (CATH LAB USE ONLY) ONE ×3 (14:31→16:51)
[2020-10-12] MEDS ORDERED: niCARdipine HCL INJ 2.5 MG/ML 10 ML AMP ONE (14:31)
[2020-10-12] MEDS ORDERED: MIDAZOLAM HCL 1 MG/ML 2ML VIAL ONE ×5 (14:32→17:12)
[2020-10-12] MEDS ORDERED: fentaNYL citrate 100 MCG/2 ML VIAL ONE ×3 (14:32→16:16)
[2020-10-12] MEDS ORDERED: NITROGLYCERIN/D5W 100MCG/ML 20ML SYR ONE (14:32)
--- NOTE | 2020-10-12 15:36 | Cardiac Catheterization ---
[facility] Data: Robotics Technologist Cardiac Status Clinical evaluation leading to the procedure CAD Presenation: Non STEMI Anginal Classification: CCS IV Heart Failure: No Cardiogenic Shock within 24 Hours: No Cardiac Arrest within 24 Hours: No Imaging Studies Past 6 Months: Yes Stress Studies Past 6 Months: No Standard Exercise Test: No Stress Echocardiogram: No Stress Testing w/SPECT MPI: No Cardiac CTA: No Coronary Anatomy Dominant: Right Left Ventricular Angiography EF (%): n/a Diagnostic Physicians Name: Timothy Marion MD Status: Elective Closure Device Percutaneous Entry Location: Radial Closure Device: Radial Band Recommendations: Management Recommendatons (as above) Cardiac Cath Procedure Full Procedure Date October 12, 2020 Pre-Procedure Diagnosis Pre-Procedure Diagnosis: Non STEMI AUC Score AUC Score: 9 Post-Procedure Diagnosis Post-Procedure Diagnosis: Severe CAD and Normal Intracardiac Pressures Procedure(s) Performed Procedure(s) Performed: Coronary Angiography and Left Heart Cath Chronic Condition Nurse Timothy Marion MD Bulb Tester(s) Bacilio Estimated Blood Loss Estimated Blood Loss: < 25 ml Medication(s) Medication(s): Fentanyl, Heparin, Lidocaine 1%, Nicardipine and Versed Summary of Findings Procedures: 1. Coronary angiography 2. Left heart catheterization 3. Moderate sedation Presentation: 1. Has been having anginal symptoms for 6 months with rest symptoms last night with recent COVID-19 infection. Initially, T wave inversions inferiorly, with development of anterior T wave inversions today. LAD wall motion abnormality on echo. Coronary angiography: 1. Left main coronary artery: The LMCA is large in caliber. No significant CAD. 2. Left anterior descending: LAD is a large-caliber vessel that wraps around the apex. Proximal to mid LAD long diffuse 70% (PATSY 3 flow). D1 without significant CAD, but originates from within the diseased segment of the LAD. 3. Circumflex: Proximal circumflex 50%. Medium OM1 and small OM 2 vessels. 4. Right coronary artery: RCA is large and dominant. Proximal RCA 100% (PATSY 0 flow). Right to right and left to right collaterals. 5. Ramus intermedius: Large caliber vessel. Proximal ramus 40%. Mid ramus 30%. Left heart catheterization: 1. Left ventriculography was not performed. 2. No aortic stenosis. Peak to peak gradient across the aortic valve is 0. 3. Normal LVEDP; 6 mmHg. Moderate sedation: 1. Sedation start time: 2:59 PM 2. Sedation end time: 3:30 PM Procedural notes: 1. Initially there was concern that the proximal circumflex had more significant disease but once image quality was improved, it no longer appeared angiographically severe. 2. Images were reviewed with Dr. Menard of interventional cardiology. There is concern that the proximal RCA is more acute given its appearance. There is also objective data suggest that the LAD is playing a role in current presentation. Impression: 1. Severe CAD involving proximal RCA and proximal to mid LAD. 2. Otherwise, mild and moderate nonobstructive CAD. 3. No aortic stenosis. 4. Normal left-sided filling pressure. Plan: 1. Images were reviewed with Dr. Menard of interventional cardiology. Given the fact that the proximal RCA appears more acute in nature on visual inspection, could account for his rest symptoms, and concern for embolic phenomena related to COVID-19, he plans on attempting PCI of the RCA, and then possibly LAD. If the RCA appears more chronic during this attempt, considering referral for CT surgery. 2. Optimize medical therapy as well. Hemodynamics Rest Ao:: 99/64 Final Ao: 98/66 LV: 102//6 Recommendations Recommendations: Management Recommendatons (as above) Specimens Specimens: None Radiation Exposure (mGy) 597 mGy. Fluoro time 2.7 min. Contrast (mls) 70 ml Procedural Complication(s) None Disposition remains in catheterization laboratory technician for interventional procedure I attest to the content of the Intraoperative Record and any orders documented therein. Any exceptions are noted below. [facility] Card Cath Procedure Codes Cardiac Catheterization Procedure 1: Cardiovascular Cath Procedures: 88147 Coronaries and LHC (+/-LV) Moderate Sedation Procedure 1: Sedation/Anesthesia: 99077 Mod Sedation by the same physician;Init15 Min Child Age 5 & Up Procedure 2: Sedation/Anesthesia: 50536 Mod Sedation by the same physician; Ea [id number] Minutes PG Care Time/CCT Total # of Minutes Spent Total Time Spent with Patient: Total time spent is greater than 50% in coordination of care (as documented) at patient's floor/unit and/or counseling patient:
[2020-10-12] MEDS ORDERED: TICAGRELOR 90 MG TAB PO ONE (17:33)
--- NOTE | 2020-10-12 17:48 | Post Anesthesia Assessment ---
Date of Service October 12, 2020 Post Sedation Assessment Vital Signs Temp Pulse Pulse Resp BP BP BP 10/12/20 11:40 98.6 F 88 18 127/80 10/12/20 07:41 98.8 F 106 H 18 161/92 H 10/12/20 06:30 100 H 22 121/69 10/12/20 06:00 98 H 22 129/69 10/12/20 05:32 100 H 24 135/78 10/12/20 05:00 97 H 23 144/79 H 10/12/20 04:30 104 H 20 130/85 10/12/20 04:00 107 H 20 140/93 10/12/20 03:40 98.6 F 115 H 20 151/112 H Pulse Ox 10/12/20 11:40 97 10/12/20 07:41 100 10/12/20 06:30 97 10/12/20 06:00 97 10/12/20 05:32 96 10/12/20 05:00 95 10/12/20 04:30 95 10/12/20 04:00 97 10/12/20 03:40 99 Recovery Score Activity: Moves 4 extremities Respiration: Deep Breath/Cough Circulation: +/-20% PreAnes Value Consciousness: Fully Awake Oxygen Saturation: O2 needed for >90% Discharge Sedation Level of Care: Fast Track Phase II Post Sedation Plan On clinical assessment, the patient appears to have tolerated the sedation without complications. Patient is recovering as anticipated. Patient will continue to be monitored by nursing and may be discharged when sedation discharge criteria are met per below protocol. Upon Completions of procedure up to 15 minutes continue every 5 minute vital signs and the P.A.R. score; then discharge to a Phase I or Fast Track to Phase II per the following guidelines: * Discharge Patient to appropriate Phase II area if PAR is 8 or greater or return to pre- procedure baseline. The post - procedure orders will be as directed. * If PAR score is less than 8 or not return to pre-procedure baseline then patient will follow Phase I monitoring till PAR is reached for Phase II. The Phase I may be done in procedure room or may call to secure a Phase I area. * If naloxone or flumazenil are used for reversal, hold in Phase I for continued monitoring from when last reversal dose was given for a minimum of 60 minutes or longer pending the nurse and/or physician discretion of patient condition before discharge to Phase II. Please call the Sedation Physician to re-evaluate and complete post-note for discharge to Phase II area. Do NOT discharge from procedure sedation or Phase 1 until post- sedation evaluation note is complete by procedure /sedation MD Sedation Discharge Instructions to be given to the patient at discharge to home.
--- NOTE | 2020-10-12 17:50 | Post Operative Brief Note ---
Cardiology Brief Post Op Date of Surgery October 12, 2020 Pre & Post Diagnosis CAD Procedure PCI RCA PCI LAD Ledger Clerk Tyler Menard MD Sewer System Supervisor Bacilio Estimated Blood Loss 20 Findings See Below Successful PCI of proximal to mid RCA acute on chronic occlusion with single ERMA (3.5 x 38 Bobby; post-dilated with 4.0 NC). Successful PCI of proximal to mid LAD with single ERMA (3.0 x 38 [place]; post- dilated with 3.5 NC). Fluids 380 Specimens Specimen Description: none Drains Other (none) Anesthesia Type RN Sedation Complications none Disposition Accompanied Patient To Recovery: No Disposition: PCU Overlapping Procedure I was present for: the critical portions of procedure. I was immediately available: during the entire case. Back up surgeon: was not required during procedure.
[2020-10-12] MEDS ORDERED: SODIUM CHLORIDE 0.9% 1000ML 1,000 ML IV SCH (18:00)
[2020-10-12] MEDS: METOPROLOL TARTRATE 25 MG TAB PO SCH (20:52)
[2020-10-12] MEDS ORDERED: ATORVASTATIN 40 MG TAB PO SCH (21:00)
--- NOTE | 2020-10-12 21:17 | Cardiac Catheterization ---
ACC Data: [employer] Cardiac Status Clinical evaluation leading to the procedure CAD Presenation: Non STEMI Anginal Classification: CCS IV Heart Failure: No Cardiogenic Shock within 24 Hours: No Cardiac Arrest within 24 Hours: No Imaging Studies Past 6 Months: Yes Stress Studies Past 6 Months: No Diagnostic Physicians Name: Tyler Menard MD Status: Elective Closure Device Percutaneous Entry Location: Radial Closure Device: Radial Band Recommendations: PCI without planned CABG PCI Indication: PCI for high risk Non-EDGAR Lesion Segment Name: Proximal RCA Culprit Artery: Yes Stenosis Prior to Rx (%): 100 Chronic Total Occlusion: No IVUS: No FFR: No Pre-Procedure PATSY Flow: 0 Previously Treated Lesion: No Lesion Complexity: High/C Lesion Length (mm): 30 Thrombus Present: Yes Bifurcation Lesion: No Guidewire Across Lesion: Stenosis Post-Procedure (%): 0 Post-Procedure PATSY Flow: 3 Devices(s) Deployed: Yes Yes Lesion #2 Segment Name: Proximal to mid LAD Culprit Artery: No Stenosis Prior to Rx (%): 70 Chronic Total Occlusion: No IVUS: No FFR: No Pre-Procedure PATSY Flow: 3 Previously Treated Lesion: No Lesion Complexity: Non-High/Non-C Lesion Length (mm): 30 Thrombus Present: No Bifurcation Lesion: Yes Guidewire Across Lesion: Yes Stenosis Post-Procedure (%): 0 Post-Procedure PATSY Flow: 3 Devices(s) Deployed: Yes Intraprocedure Events Significant Disection: No Perforation: No Cardiac Cath Procedure Full Procedure Date October 12, 2020 Pre-Procedure Diagnosis Pre-Procedure Diagnosis: Non STEMI and CAD AUC Score AUC Score: 8 Post-Procedure Diagnosis Post-Procedure Diagnosis: Severe CAD and Successful PCI Procedure(s) Performed Procedure(s) Performed: Drug Eluting Stent Bench Technician Tyler Menard MD Dough Cutter(s) Bacilio Estimated Blood Loss Estimated Blood Loss: < 25 ml Medication(s) Medication(s): Fentanyl, Heparin, Lidocaine 1%, Nicardipine and Versed Medication(s): ticagrelor Summary of Findings Indication: High risk NSTEMI Access: 6 Fr right radial artery Catheters: JR4 guide, EBU 3.5 guide Findings: For full details of patient's coronary angiography please see cath report dictated by Dr. Marion. Briefly, patient found to have severe multivessel with an occluded proximal RCA with faint [id number] collaterals and severe diffuse proximal mid LAD disease. Decision to proceed with attempted PCI of RCA. -- PCI -- Antithrombotic therapy: Heparin, ticagrelor Procedure: RCA cannulated with JR4 guide Eventually able to cross acute on chronic proximal RCA occlusion with sdv pilot/navigator/dds operator 50 wire and OTW balloon for support Able to cross occlusion with a Corsair catheter and injection through the catheter confirmed intraluminal position Mailman wire placed into distal vessel and Corsair catheter removed Proximal to mid RCA dilated with 2.0 and 3.0 balloons Dilated proximal/mid RCA stented with 3.5 x 38 mm [place] drug-eluting stent Stent post-dilated with 4.0 noncompliant balloon IC vasodilators administered for spasm Post procedure PATSY 3 flow, stent well expanded with minimal residual stenosis and no apparent cardiac complications. Left main cannulated with EBU 3.5 guide BMW wire placed into distal LAD [place] wire placed into large D1 Proximal to mid LAD dilated with 3.0 balloon Proximal to mid LAD stented with 3.0 x 38 mm [place] drug-eluting stent Stent postdilated with 3.5 noncompliant balloon IC vasodilators administered for spasm Post procedure PATSY 3 flow, stent well expanded with minimal residual stenosis and no apparent cardiac complications. Arterial Closure: TR band Summary: 1. Successful PCI of proximal to mid RCA acute on chronic total occlusion with single drug-eluting stent (3.5 x 38 mm [place]; postdilated with 4.0 NC). 2. Successful PCI of proximal to mid LAD with single drug-eluting stent (3.0 x 38 mm [place]; postdilated with 3.5 NC). Recommendations: To PCU for continued monitoring Loaded with ticagrelor 180 mg in [employer] Continue dual-antiplatelet therapy for at least 1 year Hemodynamics Rest Ao:: / Final Ao: / LV: -- Recommendations Recommendations: PCI without planned CABG Specimens Specimens: None Radiation Exposure (mGy) 6354 (patient counseled on signs and symptoms of radiation toxicity). Contrast (mls) 165 Fluids (cc crystalloids) Fluids (cc crystalloids): 380 Drains Drains: none Anesthesia moderate Procedural Complication(s) None Disposition PCU I attest to the content of the Intraoperative Record and any orders documented therein. Any exceptions are noted below. [facility] Card Cath Procedure Codes Moderate Sedation Procedure 1: Sedation/Anesthesia: 14475 Mod Sedation by the same physician; Ea [id number] Minutes Stenting Procedure 1: Cardiovascular Stent Procedures: 16916 Perc transluminal revascularization of chronic total occlusion, Procedure 2: Cardiovascular Stent Procedures: 68619 Ea addl branch of a major coronary artery PG Care Time/CCT Total # of Minutes Spent Total Time Spent with Patient: Total time spent is greater than 50% in coordination of care (as documented) at patient's floor/unit and/or counseling patient:
[2020-10-13] MEDS: TICAGRELOR 90 MG TAB PO SCH ×3 (04:10→20:00)
--- NOTE | 2020-10-13 05:50 | Electrocardiogram Report ---
Test Reason : Blood Pressure : / mmHG Vent. Rate : 116 BPM Atrial Rate : 116 BPM P-R Int : 128 ms QRS Dur : 098 ms QT Int : 324 ms P-R-T Axes : 042 047 -22 degrees QTc Int : 450 ms Poor data quality, interpretation may be adversely affected Sinus tachycardia T wave abnormality, consider inferior ischemia Abnormal ECG No previous ECGs available Confirmed by Timothy Marion ([id number]) on 10/13/2020 5:50:47 AM Referred By: Enrique GOLDEN Confirmed By:Timothy Marion
[2020-10-13] MEDS: PANTOprazole 40 MG TAB PO SCH (05:59)
--- NOTE | 2020-10-13 06:14 | Electrocardiogram Report ---
Test Reason : Blood Pressure : / mmHG Vent. Rate : 090 BPM Atrial Rate : 090 BPM P-R Int : 136 ms QRS Dur : 096 ms QT Int : 408 ms P-R-T Axes : 046 034 110 degrees QTc Int : 499 ms Normal sinus rhythm Possible Inferior infarct , age undetermined T wave abnormality, consider anterior ischemia Abnormal ECG When compared with ECG of 12-OCT-2020 03:40, T wave inversion no longer evident in Inferior leads T wave inversion now evident in Anterior leads Confirmed by Timothy Marion ([id number]) on 10/13/2020 6:13:58 AM Referred By: Enrique SCI Confirmed By:Timothy Marion
[2020-10-13] MEDS: ASPIRIN 81 MG ECTAB PO SCH (07:21)
[2020-10-13] MEDS: ZINC SULFATE 220 MG CAPSULE PO SCH ×2 (07:21→19:59)
[2020-10-13] MEDS: METOPROLOL TARTRATE 25 MG TAB PO SCH ×2 (07:21→19:59)
[2020-10-13] MEDS: amLODIPine BESYLATE 5 MG TAB PO SCH (07:22)
[2020-10-13] MEDS: lisinopril 40 MG TAB PO SCH (07:22)
[2020-10-13] MEDS: GABAPENTIN 600 MG TAB PO SCH ×2 (07:22→19:58)
[2020-10-13] MEDS: CHOLECALCIFEROL 1,000 UNITS 25 MCG TAB PO SCH (07:22)
[2020-10-13] MEDS: AMMONIUM LACTATE 12% LOTION 225 GM BTL EXT SCH ×2 (07:23→20:00)
[2020-10-13 07:59] LABS: Estimated Average Glucose 263 mg/dl; Hemoglobin A1C 10.8 % (4.5-5.6)
[2020-10-13 08:06] LABS: Basophils # (auto) 0.02 K/uL (0-0.2); Basophils % (auto) 0.3 %; Eosinophils # (auto) 0.13 K/uL (0-0.5); Eosinophils % (auto) 1.9 %; Hematocrit (blood only) 40.1 % (42-52); Hemoglobin 13.6 g/dL (14.0-18.0); Immature Granulocytes # (auto) 0.01 K/uL (0.00-0.02); Immature Granulocytes % (auto) 0.1 %; Lymphocytes # (auto) 1.68 K/uL (1.2-3.4); Lymphocytes % (auto) 24.3 %; Mean Corpuscular Hemoglobin 26.9 pg (25-34); Mean Corpuscular Hgb Conc 33.9 g/dL (32-36); Mean Corpuscular Volume 79.2 fL (80-100); Mean Platelet Volume 10.7 fL (7.4-10.4); Monocytes # (auto) 0.53 K/uL (0.11-0.59); Monocytes % (auto) 7.7 %; Neutrophils # (auto) 4.53 K/uL (1.4-6.5); Neutrophils % (auto) 65.7 %; Platelet Count 440 K/uL (130-400); RDW Coefficient of Variation 14.1 % (11.5-14.5); RDW Standard Deviation 39.9 fL (36.4-46.3); Red Blood Count 5.06 M/uL (4.7-6.1)
[2020-10-13 08:16] LABS: Albumin Level 3.2 gm/dl (3.4-5.0); BUN Creatinine Ratio 19.3 (10-20); Calcium 9.1 mg/dl (8.5-10.1); Creatinine Clr Calc Pharmacy 154.4 ml/min; Phosphorus 2.8 mg/dl (2.5-4.9); Potassium 4.2 mmol/L (3.5-5.1)
[2020-10-13] MEDS: INSULIN ASPART 100 UNITS/ML 3 ML PEN SC SCH ×4 (09:04→20:03)
[2020-10-13] MEDS: INSULIN GLARGINE SOLOSTAR 100 UNITS/ML 3 ML PEN SQ SCH (09:06)
--- NOTE | 2020-10-13 09:46 | Cardiology Progress Note ---
Date of Service October 13, 2020 Assessment & Plan (1) Non-ST elevation (NSTEMI) myocardial infarction: (2) CAD (coronary artery disease): (3) S/P coronary artery stent placement: (4) Dyslipidemia: (5) Hypertension: (6) COVID-19: ASSESSMENT/PLAN: 1. NSTEMI: No further angina following PCI. Troponin peaked at 12.2. Underwent PCI of RCA and LAD. Continue dual anti-platelet therapy for at least a year and aspirin indefinitely. Discussed with patient in detail. Continue other medical therapy as outlined. 2. CAD s/p PCI (RCA and LAD): No further angina. Continue aspirin 81 mg daily indefinitely. Continue Brilinta for at least 1 year. Continue high-intensity statin therapy. Continue beta-lucrecia and FABY-inhibitor. Can repeat echo as an outpatient to evaluate LV systolic function and wall motion. 3. Dyslipidemia: Continue high-intensity statin therapy. LDL 90. Crestor 40 mg once daily started in place of atorvastatin. 4. Hypertension: Blood pressure well controlled. Continue current regimen. 5. COVID-19 infection: Reportedly had symptoms began approximately 14 days prior to presentation with positive test 4 days prior to presentation at his correctional facility. As per primary service. 6. Tobacco abuse: Stop smoking. 7. Disposition: Can be discharged tomorrow if no further issues. Repeat ECG tomorrow given prolonged QT. Admission and Anticipated Discharge Date Admission Date: October 12, 2020 Subjective He underwent cardiac catheterization yesterday including PCI of occluded proximal RCA and severe proximal to mid LAD. He tolerated the procedure well. He feels much better today. He does notice some paroxysmal nocturnal dyspnea but this is not necessarily new. His cell mate at the correctional facility has told him that he snores and appears to stop breathing at times. One of the guards that was at the bedside today also mentioned that he has been snoring this morning and would wake up suddenly. He denies chest pain, syncope, near-syncope, palpitations, edema, or bleeding. He has not had any issues from his right radial cath site. Review of systems: As above. Physical Exam Physical Exam: Gen.: No acute distress. Alert and oriented. HEENT: Anicteric sclera. Neck: No JVD Cardiac: No ventricular heave. Regular rate and rhythm. Normal S1-S2. No murmurs, rubs, or gallops. Pulmonary: Clear to auscultation bilaterally without wheezes, rales, or rhonchi. Abdomen: Soft, nontender, nondistended, with normoactive bowel sounds. No bruits noted. Extremities: 2+ radial pulses bilaterally. Right radial cath site is clean, dry, and intact without erythema or discharge. No edema or cyanosis. Psychiatric: Affect appears appropriate. Results & Data ([facility]) Vital Signs (Past 12 Hours) Vital Signs Temp Pulse Resp BP Pulse Ox 10/13/20 07:23 36.8 C 90 20 125/74 92 10/13/20 04:02 37.0 C 68 18 132/76 95 10/13/20 00:13 36.5 C 83 17 114/84 92 10/12/20 23:36 36.5 C 73 16 114/84 96 10/12/20 22:36 37 C 90 15 111/78 98 Laboratory Results Laboratory Results - last 24 hr 10/12/20 10/12/20 10/12/20 08:55 09:43 11:39 WBC RBC Hgb Hct MCV MCH MCHC RDW Std Deviation RDW Coeff of Laureen Plt Count MPV Immature Gran % (Auto) Neut % (Auto) Lymph % (Auto) [place] % (Auto) Eos % (Auto) Baso % (Auto) Neut # (Auto) Lymph # (Auto) [place] # (Auto) Eos # (Auto) Baso # (Auto) Immature Gran # (Auto) APTT PTT Ratio Sodium Potassium Chloride Carbon Dioxide Anion Gap BUN Creatinine Est Cr Clr Drug Dosing Est GFR ( Amer) Est GFR (Non-Af Amer) BUN/Creatinine Ratio Glucose POC Glucose 222 H Estimat Average Glucose Hemoglobin A1c Calcium Phosphorus Troponin I 7.650 H* Albumin Triglycerides 171 H Cholesterol 162 LDL Cholesterol, Calc 90 VLDL Cholesterol, Calc 34 HDL Cholesterol 38 Cholesterol/HDL Ratio 4 SARS-CoV-2, RNA, NAAT 10/12/20 10/12/20 10/12/20 11:46 14:10 18:25 WBC RBC Hgb Hct MCV MCH MCHC RDW Std Deviation RDW Coeff of Laureen Plt Count MPV Immature Gran % (Auto) Neut % (Auto) Lymph % (Auto) [place] % (Auto) Eos % (Auto) Baso % (Auto) Neut # (Auto) Lymph # (Auto) [place] # (Auto) Eos # (Auto) Baso # (Auto) Immature Gran # (Auto) APTT 52.5 H* PTT Ratio 2.0 Sodium Potassium Chloride Carbon Dioxide Anion Gap BUN Creatinine Est Cr Clr Drug Dosing Est GFR ( Amer) Est GFR (Non-Af Amer) BUN/Creatinine Ratio Glucose POC Glucose 179 H Estimat Average Glucose Hemoglobin A1c Calcium Phosphorus Troponin I Albumin Triglycerides Cholesterol LDL Cholesterol, Calc VLDL Cholesterol, Calc HDL Cholesterol Cholesterol/HDL Ratio SARS-CoV-2, RNA, NAAT NEGATIVE 10/12/20 10/12/20 10/13/20 18:36 20:10 06:58 WBC 6.90 RBC 5.06 Hgb 13.6 L Hct 40.1 L MCV 79.2 L MCH 26.9 MCHC 33.9 RDW Std Deviation 39.9 RDW Coeff of Laureen 14.1 Plt Count 440 H MPV 10.7 H Immature Gran % (Auto) 0.1 Neut % (Auto) 65.7 Lymph % (Auto) 24.3 [place] % (Auto) 7.7 Eos % (Auto) 1.9 Baso % (Auto) 0.3 Neut # (Auto) 4.53 Lymph # (Auto) 1.68 [place] # (Auto) 0.53 Eos # (Auto) 0.13 Baso # (Auto) 0.02 Immature Gran # (Auto) 0.01 APTT PTT Ratio Sodium Potassium Chloride Carbon Dioxide Anion Gap BUN Creatinine Est Cr Clr Drug Dosing Est GFR ( Amer) Est GFR (Non-Af Amer) BUN/Creatinine Ratio Glucose POC Glucose 216 H Estimat Average Glucose Hemoglobin A1c Calcium Phosphorus Troponin I 12.200 H* Albumin Triglycerides Cholesterol LDL Cholesterol, Calc VLDL Cholesterol, Calc HDL Cholesterol Cholesterol/HDL Ratio SARS-CoV-2, RNA, NAAT 10/13/20 10/13/20 10/13/20 06:58 06:58 07:12 WBC RBC Hgb Hct MCV MCH MCHC RDW Std Deviation RDW Coeff of Laureen Plt Count MPV Immature Gran % (Auto) Neut % (Auto) Lymph % (Auto) [place] % (Auto) Eos % (Auto) Baso % (Auto) Neut # (Auto) Lymph # (Auto) [place] # (Auto) Eos # (Auto) Baso # (Auto) Immature Gran # (Auto) APTT PTT Ratio Sodium 136 Potassium 4.2 Chloride 104 Carbon Dioxide 25 Anion Gap 8.0 BUN 17 Creatinine 0.86 Est Cr Clr Drug Dosing 154.4 Est GFR ( Amer) 124.0 Est GFR (Non-Af Amer) 107.0 BUN/Creatinine Ratio 19.3 Glucose 182 H POC Glucose Estimat Average Glucose 263 Hemoglobin A1c 10.8 H Calcium 9.1 Phosphorus 2.8 Troponin I 5.520 H* Albumin 3.2 L Triglycerides Cholesterol LDL Cholesterol, Calc VLDL Cholesterol, Calc HDL Cholesterol Cholesterol/HDL Ratio SARS-CoV-2, RNA, NAAT 10/13/20 07:16 WBC RBC Hgb Hct MCV MCH MCHC RDW Std Deviation RDW Coeff of Laureen Plt Count MPV Immature Gran % (Auto) Neut % (Auto) Lymph % (Auto) [place] % (Auto) Eos % (Auto) Baso % (Auto) Neut # (Auto) Lymph # (Auto) [place] # (Auto) Eos # (Auto) Baso # (Auto) Immature Gran # (Auto) APTT PTT Ratio Sodium Potassium Chloride Carbon Dioxide Anion Gap BUN Creatinine Est Cr Clr Drug Dosing Est GFR ( Amer) Est GFR (Non-Af Amer) BUN/Creatinine Ratio Glucose POC Glucose 192 H Estimat Average Glucose Hemoglobin A1c Calcium Phosphorus Troponin I Albumin Triglycerides Cholesterol LDL Cholesterol, Calc VLDL Cholesterol, Calc HDL Cholesterol Cholesterol/HDL Ratio SARS-CoV-2, RNA, NAAT Diagnostic Findings Cardiac catheterization report reviewed with PCI as noted above. Telemetry personally reviewed. ECG from today personally reviewed. Telemetry: Sinus rhythm. No arrhythmia. ECG 10/13/2020: Sinus rhythm 79 beats per minute. Prolonged QT. marked T-wave inversion in the anterior and lateral leads. Medications Administered Current Inpatient Medications Acetaminophen (Acetaminophen 325 Mg Tab) 650 mg PO Q4H PRN PRN Reason: Pain or Fever Stop: 11/11/20 07:45 Amlodipine Besylate (Amlodipine Besylate 5 Mg Tab) 10 mg PO DAILY [facility] Stop: 11/11/20 08:59 Last Admin: 10/13/20 07:22 Dose: 10 mg Documented by: Aspirin (Aspirin 81 Mg Ectab) 81 mg PO QAM [facility] Stop: 11/12/20 08:59 Last Admin: 10/13/20 07:21 Dose: 81 mg Documented by: Dextrose (Dextrose 50% 50 Ml Syringe) 25 - 50 ml IV UD PRN; Protocol PRN Reason: Hypoglycemia Protocol Stop: 11/11/20 07:45 Gabapentin (Gabapentin 600 Mg Tab) 1,200 mg PO BID [facility] Stop: 11/11/20 08:59 Last Admin: 10/13/20 07:22 Dose: 1,200 mg Documented by: Glucagon (Glucagon For Inj 1 Mg Vial) 1 mg SQ UD PRN; Protocol PRN Reason: Hypoglycemia Protocol Stop: 11/11/20 07:45 Glucose (Glucose 10 Tabs/Tube) 4 - 8 tabs PO UD PRN; Protocol PRN Reason: Hypoglycemia Protocol Stop: 11/11/20 07:45 Glucose (Glucose 40% Gel 15 Gm Tube) 15 - 30 gm PO UD PRN; Protocol PRN Reason: Hypoglycemia Protocol Stop: 11/11/20 07:45 Ibuprofen (Ibuprofen 200 Mg Tab) 400 mg PO TID PRN PRN Reason: COVID SYMPTOMS Stop: 11/11/20 07:45 Insulin Aspart (Insulin Aspart 100 Units/Ml 3 Ml Pen) 0 units SC ACHS [facility]IN Stop: 11/11/20 07:45 Last Admin: 10/13/20 09:04 Dose: 6 units Documented by: Insulin Glargine (Insulin Glargine Solostar 100 Units/Ml 3 Ml Pen) 20 units SQ QAM [facility] Stop: 11/11/20 08:59 Last Admin: 10/13/20 09:06 Dose: 20 units Documented by: Lactic Acid (Ammonium Lactate 12% Lotion 225 Gm Btl) 1 gm EXT BID NAVIN Stop: 11/11/20 08:59 Last Admin: 10/13/20 07:23 Dose: Not Given Documented by: Levalbuterol HCl (Levalbuterol Tartrate 15 Gm Hfa.Aer.Ad) 2 puffs INH Q6H PRN PRN Reason: Shortness Of Breath Stop: 11/11/20 07:45 Lisinopril (Lisinopril 40 Mg Tab) 40 mg PO DAILY [facility] Stop: 11/11/20 08:59 Last Admin: 10/13/20 07:22 Dose: 40 mg Documented by: Metoprolol Tartrate (Metoprolol Tartrate 25 Mg Tab) 25 mg PO BID [facility] Stop: 11/11/20 20:59 Last Admin: 10/13/20 07:21 Dose: 25 mg Documented by: Miscellaneous (Carbohydrates For Hypoglycemia ) 15 - 30 gm PO UD PRN PRN Reason: Hypoglycemia Protocol Stop: 11/11/20 07:45 Nitroglycerin (Nitroglycerin Sl 0.4 Mg/Tab Tab) 0.4 mg SL UD PRN PRN Reason: Chest Pain Stop: 11/11/20 07:45 Ondansetron HCl (Ondansetron Inj 2 Mg/Ml 2 Ml Vial) 4 mg IV Q6H PRN PRN Reason: Nausea Stop: 11/11/20 07:45 Pantoprazole Sodium (Pantoprazole 40 Mg Tab) 40 mg PO DAILYBB [facility] Stop: 11/12/20 06:29 Last Admin: 10/13/20 05:59 Dose: 40 mg Documented by: Rosuvastatin Calcium (Rosuvastatin Calcium 20 Mg Tab) 40 mg PO HS [facility] Stop: 11/12/20 20:59 Ticagrelor (Ticagrelor 90 Mg Tab) 90 mg PO BID [facility] Stop: 11/12/20 03:52 Last Admin: 10/13/20 04:10 Dose: 90 mg Documented by: Vitamin D (Cholecalciferol 1,000 Units 25 Mcg Tab) 1,000 units PO DAILY [facility] Stop: 11/11/20 08:59 Last Admin: 10/13/20 07:22 Dose: 1,000 units Documented by: Zinc Sulfate (Zinc Sulfate 220 Mg Capsule) 220 mg PO BID [facility] Stop: 11/11/20 08:59 Last Admin: 10/13/20 07:21 Dose: 220 mg Documented by: PG Care Time/CCT Total # of Minutes Spent Total Time Spent with Patient: Total time spent is greater than 50% in coordination of care (as documented) at patient's floor/unit and/or counseling patient: Coding Level of Care Code 97685 Subseq Hosp Care Lvl 3 Diagnoses Non-ST elevation (NSTEMI) myocardial infarction I21.4 CAD (coronary artery disease) I25.10 S/P coronary artery stent placement Z95.5 Dyslipidemia E78.5 Hypertension I10 COVID-19 U07.1
--- NOTE | 2020-10-13 10:59 | Hospitalist Progress Note ---
Date of Service October 13, 2020 Assessment & Plan (1) Non-ST elevation (NSTEMI) myocardial infarction: troponin bumped from 0.8 to 7 on 10/12 gave good story for ongoing angina and then had chest pain at rest echo with hypokinesis of apex left heart cath on 10/12 showed 100% RCA and 70% mid LAD stenosis two drug eluting stents placed by Dr. Menard no chest pain today, vitals stable, troponin down to 5, peaked at 12 last night continue aspirin and Brilinta Crestor 40mg daily Lopressor 25mg BID Lisinopril 40mg daily will call [facility] about discharge tomorrow, they may not carry Brilinta on formulary, might need Plavix likely he will be fine tomorrow, will have him OOB to chair, ambulate prior to discharge (2) CAD (coronary artery disease): severe CAD on cath on 10/12, two ERMA placed in RCA and LAD continue DAPT for a year statin therapy glucose control (3) S/P coronary artery stent placement: ERMA placed in RCA and LAD on 10/12 Cr is stable after contrast (4) COVID-19: symptoms 2-3 weeks ago, tested positive LAST , 10/05 he is NEGATIVE on 10/12 98% on room air, CXR clear, lungs clear keep in isolation for now since we plan on discharging tomorrow (5) Type 2 diabetes mellitus: Lantus and Novolog SS diabetic diet monitor for hypoglycemia (6) Dyslipidemia: Crestor 40mg daily (7) Hypertension: BP stable on Norvasc, lisinopril, metoprolol (8) GERD (gastroesophageal reflux disease): Change omeprazole to pantoprazole (9) Asthma: Continue Xopenex HFA 2 puffs every 6 hours as needed no wheezing on exam (10) Peripheral neuropathy: Continue gabapentin 1200 mg p.o. twice daily Admission and Anticipated Discharge Date Admission Date: October 12, 2020 Subjective patient admitted early yesterday morning evaluated by Dr. Marion yesterday, gave a credible story for angina over past few weeks/months then with chest pain at rest heart catheterization on 10/12 with 100% RCA and 70% LAD two ERMA placed successfully reviewed labs, Cr is stable this morning after contrast, CBC normal no chest pain or pressure at rest, did not have any symptoms walking to bathroom either c/o random sensation of dyspnea when sitting, goes away with some deep breaths he is eating well, no fever, no cough he had COVID symptoms 2-3 weeks ago, tested positive last , he actually tested negative yesterday prior to cath Review of Systems Review of Systems: All systems reviewed & are unremarkable except as noted in Subjective Respiratory: + dyspnea; no cough and no dyspnea on exertion Cardiovascular: + dyspnea; no chest pain, no chest pain at rest, no chest pain with activity, no radiating jaw, neck or arm pain, no palpitations, no syncope and no edema Gastrointestinal: no abdominal pain, no nausea, no vomiting, no constipation and no diarrhea/loose stools Physical Exam Constitutional: WD/WN, vitals as above comfortable; no acute distress Neck: trachea midline, no thyromegaly + facial hair Respiratory: normal respiratory effort, lungs clear to auscultation Cardiovascular: RRR, no murmur, no edema Gastrointestinal (Abdomen): normal bowel sounds, soft, nontender, no hepatosplenomegaly Musculoskeletal: no cyanosis or clubbing, extremities motor strength 5/5 Skin: no rashes, warm and dry Neurologic: patellar DTR's 2+ bilat, sensation intact and PERRL, EOMI, accommodation nl, no face palsy, no dysarthria Psychiatric: A+Ox3, euthymic affect Lymphatic: no cervical or axillary lymphadenopathy Results & Data Results & Data ([facility]) Vital Signs (Past 12 Hours) Vital Signs Temp Pulse Resp BP Pulse Ox 10/13/20 07:23 36.8 C 90 20 125/74 92 10/13/20 04:02 37.0 C 68 18 132/76 95 10/13/20 00:13 36.5 C 83 17 114/84 92 10/12/20 23:36 36.5 C 73 16 114/84 96 Laboratory Results Laboratory Results - last 24 hr 10/12/20 10/12/20 10/12/20 09:43 11:39 11:46 WBC RBC Hgb Hct MCV MCH MCHC RDW Std Deviation RDW Coeff of Laureen Plt Count MPV Immature Gran % (Auto) Neut % (Auto) Lymph % (Auto) [place] % (Auto) Eos % (Auto) Baso % (Auto) Neut # (Auto) Lymph # (Auto) [place] # (Auto) Eos # (Auto) Baso # (Auto) Immature Gran # (Auto) APTT 52.5 H* PTT Ratio 2.0 Activ Coag Time Kaolin Sodium Potassium Chloride Carbon Dioxide Anion Gap BUN Creatinine Est Cr Clr Drug Dosing Est GFR ( Amer) Est GFR (Non-Af Amer) BUN/Creatinine Ratio Glucose POC Glucose 222 H Estimat Average Glucose Hemoglobin A1c Calcium Phosphorus Troponin I 7.650 H* Albumin SARS-CoV-2, RNA, NAAT 10/12/20 10/12/20 10/12/20 14:10 15:30 16:46 WBC RBC Hgb Hct MCV MCH MCHC RDW Std Deviation RDW Coeff of Laureen Plt Count MPV Immature Gran % (Auto) Neut % (Auto) Lymph % (Auto) [place] % (Auto) Eos % (Auto) Baso % (Auto) Neut # (Auto) Lymph # (Auto) [place] # (Auto) Eos # (Auto) Baso # (Auto) Immature Gran # (Auto) APTT PTT Ratio Activ Coag Time Kaolin 169 H 191 H Sodium Potassium Chloride Carbon Dioxide Anion Gap BUN Creatinine Est Cr Clr Drug Dosing Est GFR ( Amer) Est GFR (Non-Af Amer) BUN/Creatinine Ratio Glucose POC Glucose Estimat Average Glucose Hemoglobin A1c Calcium Phosphorus Troponin I Albumin SARS-CoV-2, RNA, NAAT NEGATIVE 10/12/20 10/12/20 10/12/20 17:07 17:27 18:25 WBC RBC Hgb Hct MCV MCH MCHC RDW Std Deviation RDW Coeff of Laureen Plt Count MPV Immature Gran % (Auto) Neut % (Auto) Lymph % (Auto) [place] % (Auto) Eos % (Auto) Baso % (Auto) Neut # (Auto) Lymph # (Auto) [place] # (Auto) Eos # (Auto) Baso # (Auto) Immature Gran # (Auto) APTT PTT Ratio Activ Coag Time Kaolin 241 H 312 H Sodium Potassium Chloride Carbon Dioxide Anion Gap BUN Creatinine Est Cr Clr Drug Dosing Est GFR ( Amer) Est GFR (Non-Af Amer) BUN/Creatinine Ratio Glucose POC Glucose 179 H Estimat Average Glucose Hemoglobin A1c Calcium Phosphorus Troponin I Albumin SARS-CoV-2, RNA, NAAT 10/12/20 10/12/20 10/13/20 18:36 20:10 06:58 WBC 6.90 RBC 5.06 Hgb 13.6 L Hct 40.1 L MCV 79.2 L MCH 26.9 MCHC 33.9 RDW Std Deviation 39.9 RDW Coeff of Laureen 14.1 Plt Count 440 H MPV 10.7 H Immature Gran % (Auto) 0.1 Neut % (Auto) 65.7 Lymph % (Auto) 24.3 [place] % (Auto) 7.7 Eos % (Auto) 1.9 Baso % (Auto) 0.3 Neut # (Auto) 4.53 Lymph # (Auto) 1.68 [place] # (Auto) 0.53 Eos # (Auto) 0.13 Baso # (Auto) 0.02 Immature Gran # (Auto) 0.01 APTT PTT Ratio Activ Coag Time Kaolin Sodium Potassium Chloride Carbon Dioxide Anion Gap BUN Creatinine Est Cr Clr Drug Dosing Est GFR ( Amer) Est GFR (Non-Af Amer) BUN/Creatinine Ratio Glucose POC Glucose 216 H Estimat Average Glucose Hemoglobin A1c Calcium Phosphorus Troponin I 12.200 H* Albumin SARS-CoV-2, RNA, NAAT 10/13/20 10/13/20 10/13/20 06:58 06:58 07:12 WBC RBC Hgb Hct MCV MCH MCHC RDW Std Deviation RDW Coeff of Laureen Plt Count MPV Immature Gran % (Auto) Neut % (Auto) Lymph % (Auto) [place] % (Auto) Eos % (Auto) Baso % (Auto) Neut # (Auto) Lymph # (Auto) [place] # (Auto) Eos # (Auto) Baso # (Auto) Immature Gran # (Auto) APTT PTT Ratio Activ Coag Time Kaolin Sodium 136 Potassium 4.2 Chloride 104 Carbon Dioxide 25 Anion Gap 8.0 BUN 17 Creatinine 0.86 Est Cr Clr Drug Dosing 154.4 Est GFR ( Amer) 124.0 Est GFR (Non-Af Amer) 107.0 BUN/Creatinine Ratio 19.3 Glucose 182 H POC Glucose Estimat Average Glucose 263 Hemoglobin A1c 10.8 H Calcium 9.1 Phosphorus 2.8 Troponin I 5.520 H* Albumin 3.2 L SARS-CoV-2, RNA, NAAT 10/13/20 07:16 WBC RBC Hgb Hct MCV MCH MCHC RDW Std Deviation RDW Coeff of Laureen Plt Count MPV Immature Gran % (Auto) Neut % (Auto) Lymph % (Auto) [place] % (Auto) Eos % (Auto) Baso % (Auto) Neut # (Auto) Lymph # (Auto) [place] # (Auto) Eos # (Auto) Baso # (Auto) Immature Gran # (Auto) APTT PTT Ratio Activ Coag Time Kaolin Sodium Potassium Chloride Carbon Dioxide Anion Gap BUN Creatinine Est Cr Clr Drug Dosing Est GFR ( Amer) Est GFR (Non-Af Amer) BUN/Creatinine Ratio Glucose POC Glucose 192 H Estimat Average Glucose Hemoglobin A1c Calcium Phosphorus Troponin I Albumin SARS-CoV-2, RNA, NAAT Medications Administered Current Inpatient Medications Acetaminophen (Acetaminophen 325 Mg Tab) 650 mg PO Q4H PRN PRN Reason: Pain or Fever Stop: 11/11/20 07:45 Amlodipine Besylate (Amlodipine Besylate 5 Mg Tab) 10 mg PO DAILY [facility] Stop: 11/11/20 08:59 Last Admin: 10/13/20 07:22 Dose: 10 mg Documented by: Aspirin (Aspirin 81 Mg Ectab) 81 mg PO QAM [facility] Stop: 11/12/20 08:59 Last Admin: 10/13/20 07:21 Dose: 81 mg Documented by: Dextrose (Dextrose 50% 50 Ml Syringe) 25 - 50 ml IV UD PRN; Protocol PRN Reason: Hypoglycemia Protocol Stop: 11/11/20 07:45 Gabapentin (Gabapentin 600 Mg Tab) 1,200 mg PO BID [facility] Stop: 11/11/20 08:59 Last Admin: 10/13/20 07:22 Dose: 1,200 mg Documented by: Glucagon (Glucagon For Inj 1 Mg Vial) 1 mg SQ UD PRN; Protocol PRN Reason: Hypoglycemia Protocol Stop: 11/11/20 07:45 Glucose (Glucose 10 Tabs/Tube) 4 - 8 tabs PO UD PRN; Protocol PRN Reason: Hypoglycemia Protocol Stop: 11/11/20 07:45 Glucose (Glucose 40% Gel 15 Gm Tube) 15 - 30 gm PO UD PRN; Protocol PRN Reason: Hypoglycemia Protocol Stop: 11/11/20 07:45 Ibuprofen (Ibuprofen 200 Mg Tab) 400 mg PO TID PRN PRN Reason: COVID SYMPTOMS Stop: 11/11/20 07:45 Insulin Aspart (Insulin Aspart 100 Units/Ml 3 Ml Pen) 0 units SC ACHS [facility] Stop: 11/11/20 07:45 Last Admin: 10/13/20 09:04 Dose: 6 units Documented by: Insulin Glargine (Insulin Glargine Solostar 100 Units/Ml 3 Ml Pen) 20 units SQ QAM [facility] Stop: 11/11/20 08:59 Last Admin: 10/13/20 09:06 Dose: 20 units Documented by: Lactic Acid (Ammonium Lactate 12% Lotion 225 Gm Btl) 1 gm EXT BID [facility] Stop: 11/11/20 08:59 Last Admin: 10/13/20 07:23 Dose: Not Given Documented by: Levalbuterol HCl (Levalbuterol Tartrate 15 Gm Hfa.Aer.Ad) 2 puffs INH Q6H PRN PRN Reason: Shortness Of Breath Stop: 11/11/20 07:45 Lisinopril (Lisinopril 40 Mg Tab) 40 mg PO DAILY [facility] Stop: 11/11/20 08:59 Last Admin: 10/13/20 07:22 Dose: 40 mg Documented by: Metoprolol Tartrate (Metoprolol Tartrate 25 Mg Tab) 25 mg PO BID [facility] Stop: 11/11/20 20:59 Last Admin: 10/13/20 07:21 Dose: 25 mg Documented by: Miscellaneous (Carbohydrates For Hypoglycemia ) 15 - 30 gm PO UD PRN PRN Reason: Hypoglycemia Protocol Stop: 11/11/20 07:45 Nitroglycerin (Nitroglycerin Sl 0.4 Mg/Tab Tab) 0.4 mg SL UD PRN PRN Reason: Chest Pain Stop: 11/11/20 07:45 Ondansetron HCl (Ondansetron Inj 2 Mg/Ml 2 Ml Vial) 4 mg IV Q6H PRN PRN Reason: Nausea Stop: 11/11/20 07:45 Pantoprazole Sodium (Pantoprazole 40 Mg Tab) 40 mg PO DAILYBB [facility] Stop: 11/12/20 06:29 Last Admin: 10/13/20 05:59 Dose: 40 mg Documented by: Rosuvastatin Calcium (Rosuvastatin Calcium 20 Mg Tab) 40 mg PO HS [facility] Stop: 11/12/20 20:59 Ticagrelor (Ticagrelor 90 Mg Tab) 90 mg PO BID [facility] Stop: 11/12/20 03:52 Last Admin: 10/13/20 04:10 Dose: 90 mg Documented by: Vitamin D (Cholecalciferol 1,000 Units 25 Mcg Tab) 1,000 units PO DAILY [facility] Stop: 11/11/20 08:59 Last Admin: 10/13/20 07:22 Dose: 1,000 units Documented by: Zinc Sulfate (Zinc Sulfate 220 Mg Capsule) 220 mg PO BID [facility] Stop: 11/11/20 08:59 Last Admin: 10/13/20 07:21 Dose: 220 mg Documented by: PG Care Time/CCT Total # of Minutes Spent Total Time Spent with Patient: Total time spent is greater than 50% in coordination of care (as documented) at patient's floor/unit and/or counseling patient: Coding Level of Care Code 76239 Subseq Hosp Care Lvl 3 Diagnoses Non-ST elevation (NSTEMI) myocardial infarction I21.4 CAD (coronary artery disease) I25.10 S/P coronary artery stent placement Z95.5 COVID-19 U07.1 Type 2 diabetes mellitus E11.9 Dyslipidemia E78.5 Hypertension I10 GERD (gastroesophageal reflux disease) K21.9 Asthma J45.909 Peripheral neuropathy G62.9
--- NOTE | 2020-10-13 13:43 | Electrocardiogram Report ---
Test Reason : Blood Pressure : / mmHG Vent. Rate : 079 BPM Atrial Rate : 079 BPM P-R Int : 136 ms QRS Dur : 092 ms QT Int : 502 ms P-R-T Axes : 043 039 146 degrees QTc Int : 575 ms Normal sinus rhythm Marked T wave abnormality consider anterolateral ischemia Prolonged QT Abnormal ECG When compared with ECG of 12-OCT-2020 18:37, (unconfirmed) T wave inversion more evident in Lateral leads QT has lengthened Confirmed by Skip Daniel ([id number]) on 10/13/2020 1:42:55 PM Referred By: [facility] Confirmed By:Skip Daniel
[2020-10-13] MEDS: ROSUVASTATIN CALCIUM 20 MG TAB PO SCH (20:00)
[2020-10-14] MEDS: PANTOprazole 40 MG TAB PO SCH (05:52)
[2020-10-14 08:30] LABS: Basophils # (auto) 0.01 K/uL (0-0.2); Basophils % (auto) 0.1 %; Eosinophils # (auto) 0.13 K/uL (0-0.5); Eosinophils % (auto) 1.7 %; Hemoglobin 13.5 g/dL (14.0-18.0); Immature Granulocytes # (auto) 0.02 K/uL (0.00-0.02); Immature Granulocytes % (auto) 0.3 %; Lymphocytes # (auto) 1.47 K/uL (1.2-3.4); Lymphocytes % (auto) 19.8 %; Mean Corpuscular Hemoglobin 26.8 pg (25-34); Mean Corpuscular Hgb Conc 33.8 g/dL (32-36); Mean Corpuscular Volume 79.5 fL (80-100); Mean Platelet Volume 10.7 fL (7.4-10.4); Monocytes # (auto) 0.62 K/uL (0.11-0.59); Monocytes % (auto) 8.3 %; Neutrophils # (auto) 5.19 K/uL (1.4-6.5); Neutrophils % (auto) 69.8 %; Platelet Count 391 K/uL (130-400); RDW Coefficient of Variation 13.9 % (11.5-14.5); RDW Standard Deviation 39.5 fL (36.4-46.3); Red Blood Count 5.03 M/uL (4.7-6.1); White Blood Count 7.44 K/uL (4.8-10.8)
[2020-10-14 08:45] LABS: Albumin Level 3.3 gm/dl (3.4-5.0); BUN Creatinine Ratio 17.3 (10-20); Calcium 8.9 mg/dl (8.5-10.1); Est GFR (African American) 121.7; Potassium 4.1 mmol/L (3.5-5.1)
[2020-10-14 08:46] LABS: Phosphorus 2.9 mg/dl (2.5-4.9)
[2020-10-14] MEDS: ZINC SULFATE 220 MG CAPSULE PO SCH ×2 (09:02→20:13)
[2020-10-14] MEDS: TICAGRELOR 90 MG TAB PO SCH ×2 (09:02→20:13)
[2020-10-14] MEDS: CHOLECALCIFEROL 1,000 UNITS 25 MCG TAB PO SCH (09:03)
[2020-10-14] MEDS: GABAPENTIN 600 MG TAB PO SCH ×2 (09:03→20:12)
[2020-10-14] MEDS: METOPROLOL TARTRATE 25 MG TAB PO SCH ×2 (09:03→20:12)
[2020-10-14] MEDS: ASPIRIN 81 MG ECTAB PO SCH (09:04)
[2020-10-14] MEDS: amLODIPine BESYLATE 5 MG TAB PO SCH (09:05)
[2020-10-14] MEDS: lisinopril 40 MG TAB PO SCH (09:05)
[2020-10-14] MEDS: AMMONIUM LACTATE 12% LOTION 225 GM BTL EXT SCH ×2 (09:06→20:13)
[2020-10-14] MEDS: INSULIN GLARGINE SOLOSTAR 100 UNITS/ML 3 ML PEN SQ SCH (09:10)
[2020-10-14] MEDS: INSULIN ASPART 100 UNITS/ML 3 ML PEN SC SCH ×4 (09:11→20:48)
--- NOTE | 2020-10-14 14:52 | Hospitalist Progress Note ---
Date of Service October 14, 2020 Assessment & Plan (1) Non-ST elevation (NSTEMI) myocardial infarction: troponin bumped from 0.8 to 7.0 on 10/12 gave good story for ongoing angina and then had chest pain at rest echo with hypokinesis of apex left heart cath on 10/12 showed 100% RCA and 70% mid LAD stenosis two drug eluting stents placed by Dr. Menard no chest pain past two days, vitals stable, troponin down to 5, peaked at 12 continue aspirin and Brilinta *spoke with PA at [facility], they will not pay for Brilinta, will change to Plavix on discharge Crestor 40mg daily Lopressor 25mg BID Lisinopril 40mg daily stable from cardiac perspective, having a lot of anxiety and panic symptoms, keep today and plan for d/c tomorrow (2) CAD (coronary artery disease): severe CAD on cath on 10/12, two ERMA placed in RCA and LAD continue DAPT for a year statin therapy glucose control (3) S/P coronary artery stent placement: ERMA placed in RCA and LAD on 10/12 Cr is stable after contrast (4) COVID-19: symptoms 2-3 weeks ago, tested positive LAST , 10/05 he is NEGATIVE on 10/12 98% on room air, CXR clear, lungs clear keep in isolation for now since we plan on discharging tomorrow (5) Type 2 diabetes mellitus: Lantus and Novolog SS diabetic diet monitor for hypoglycemia, no episodes (6) Dyslipidemia: Crestor 40mg daily (7) Hypertension: BP stable on Norvasc, lisinopril, metoprolol (8) GERD (gastroesophageal reflux disease): Change omeprazole to pantoprazole (9) Asthma: Continue Xopenex HFA 2 puffs every 6 hours as needed no wheezing on exam (10) Peripheral neuropathy: Continue gabapentin 1200 mg p.o. twice daily (11) Anxiety: will try Vistaril 50mg q6 PRN, normally doesn't take anything Admission and Anticipated Discharge Date Admission Date: October 12, 2020 Subjective patient doing well, no chest pain his issue is that he feels panic attacks, feels like the room is closing in he says he has had these symptoms for a few months but now much worse with having NSTEMI and worrying about his mortality will try some Vistaril, normally not on anything CBC and BMP stable today will hold on discharge today due to anxiety/panic attack, will try for discharge tomorrow Review of Systems Review of Systems: All systems reviewed & are unremarkable except as noted in Subjective Respiratory: no cough and no dyspnea Cardiovascular: no chest pain and no edema Psychiatric: + anxiety and + panic attacks Physical Exam Constitutional: WD/WN, vitals as above comfortable; no acute distress Neck: trachea midline, no thyromegaly + facial hair Respiratory: normal respiratory effort, lungs clear to auscultation Cardiovascular: RRR, no murmur, no edema Gastrointestinal (Abdomen): normal bowel sounds, soft, nontender, no hepatosplenomegaly Musculoskeletal: no cyanosis or clubbing, extremities motor strength 5/5 Skin: no rashes, warm and dry Neurologic: patellar DTR's 2+ bilat, sensation intact and PERRL, EOMI, accommodation nl, no face palsy, no dysarthria Psychiatric: A+Ox3, euthymic affect Lymphatic: no cervical or axillary lymphadenopathy Results & Data Results & Data ([facility]) Vital Signs (Past 12 Hours) Vital Signs Temp Pulse Resp BP BP Pulse Ox 10/14/20 11:03 36.9 C 94 H 18 111/68 99 10/14/20 07:19 36.6 C 91 H 18 133/88 95 10/14/20 02:49 36.9 C 67 18 105/75 96 Laboratory Results Laboratory Results - last 24 hr 10/13/20 10/13/20 10/14/20 17:02 19:57 07:56 WBC 7.44 RBC 5.03 Hgb 13.5 L Hct 40.0 L MCV 79.5 L MCH 26.8 MCHC 33.8 RDW Std Deviation 39.5 RDW Coeff of Laureen 13.9 Plt Count 391 MPV 10.7 H Immature Gran % (Auto) 0.3 Neut % (Auto) 69.8 Lymph % (Auto) 19.8 [place] % (Auto) 8.3 Eos % (Auto) 1.7 Baso % (Auto) 0.1 Neut # (Auto) 5.19 Lymph # (Auto) 1.47 [place] # (Auto) 0.62 H Eos # (Auto) 0.13 Baso # (Auto) 0.01 Immature Gran # (Auto) 0.02 Sodium Potassium Chloride Carbon Dioxide Anion Gap BUN Creatinine Est Cr Clr Drug Dosing Est GFR ( Amer) Est GFR (Non-Af Amer) BUN/Creatinine Ratio Glucose POC Glucose 182 H 206 H Calcium Phosphorus Albumin 10/14/20 10/14/20 10/14/20 07:56 08:13 11:42 WBC RBC Hgb Hct MCV MCH MCHC RDW Std Deviation RDW Coeff of Laureen Plt Count MPV Immature Gran % (Auto) Neut % (Auto) Lymph % (Auto) [place] % (Auto) Eos % (Auto) Baso % (Auto) Neut # (Auto) Lymph # (Auto) [place] # (Auto) Eos # (Auto) Baso # (Auto) Immature Gran # (Auto) Sodium 137 Potassium 4.1 Chloride 104 Carbon Dioxide 26 Anion Gap 7.0 BUN 16 Creatinine 0.90 Est Cr Clr Drug Dosing 147.0 Est GFR ( Amer) 121.7 Est GFR (Non-Af Amer) 105.0 BUN/Creatinine Ratio 17.3 Glucose 183 H POC Glucose 184 H 196 H Calcium 8.9 Phosphorus 2.9 Albumin 3.3 L Medications Administered Current Inpatient Medications Acetaminophen (Acetaminophen 325 Mg Tab) 650 mg PO Q4H PRN PRN Reason: Pain or Fever Stop: 11/11/20 07:45 Amlodipine Besylate (Amlodipine Besylate 5 Mg Tab) 10 mg PO DAILY [facility] Stop: 11/11/20 08:59 Last Admin: 10/14/20 09:05 Dose: 10 mg Documented by: Aspirin (Aspirin 81 Mg Ectab) 81 mg PO QAM [facility] Stop: 11/12/20 08:59 Last Admin: 10/14/20 09:04 Dose: 81 mg Documented by: Dextrose (Dextrose 50% 50 Ml Syringe) 25 - 50 ml IV UD PRN; Protocol PRN Reason: Hypoglycemia Protocol Stop: 11/11/20 07:45 Gabapentin (Gabapentin 600 Mg Tab) 1,200 mg PO BID [facility] Stop: 11/11/20 08:59 Last Admin: 10/14/20 09:03 Dose: 1,200 mg Documented by: Glucagon (Glucagon For Inj 1 Mg Vial) 1 mg SQ UD PRN; Protocol PRN Reason: Hypoglycemia Protocol Stop: 11/11/20 07:45 Glucose (Glucose 10 Tabs/Tube) 4 - 8 tabs PO UD PRN; Protocol PRN Reason: Hypoglycemia Protocol Stop: 11/11/20 07:45 Glucose (Glucose 40% Gel 15 Gm Tube) 15 - 30 gm PO UD PRN; Protocol PRN Reason: Hypoglycemia Protocol Stop: 11/11/20 07:45 Hydroxyzine HCl (Hydroxyzine Hcl 25 Mg Tab) 50 mg PO Q6 PRN PRN Reason: Anxiety Stop: 11/13/20 14:44 Ibuprofen (Ibuprofen 200 Mg Tab) 400 mg PO TID PRN PRN Reason: COVID SYMPTOMS Stop: 11/11/20 07:45 Insulin Aspart (Insulin Aspart 100 Units/Ml 3 Ml Pen) 0 units SC ACHS [facility] Stop: 11/11/20 07:45 Last Admin: 10/14/20 12:17 Dose: 8 units Documented by: Insulin Glargine (Insulin Glargine Solostar 100 Units/Ml 3 Ml Pen) 20 units SQ QAM [facility] Stop: 11/11/20 08:59 Last Admin: 10/14/20 09:10 Dose: 20 units Documented by: Lactic Acid (Ammonium Lactate 12% Lotion 225 Gm Btl) 1 gm EXT BID [facility] Stop: 11/11/20 08:59 Last Admin: 10/14/20 09:06 Dose: Not Given Documented by: Levalbuterol HCl (Levalbuterol Tartrate 15 Gm Hfa.Aer.Ad) 2 puffs INH Q6H PRN PRN Reason: Shortness Of Breath Stop: 11/11/20 07:45 Lisinopril (Lisinopril 40 Mg Tab) 40 mg PO DAILY [facility] Stop: 11/11/20 08:59 Last Admin: 10/14/20 09:05 Dose: 40 mg Documented by: Metoprolol Tartrate (Metoprolol Tartrate 25 Mg Tab) 25 mg PO BID [facility] Stop: 11/11/20 20:59 Last Admin: 10/14/20 09:03 Dose: 25 mg Documented by: Miscellaneous (Carbohydrates For Hypoglycemia ) 15 - 30 gm PO UD PRN PRN Reason: Hypoglycemia Protocol Stop: 11/11/20 07:45 Nitroglycerin (Nitroglycerin Sl 0.4 Mg/Tab Tab) 0.4 mg SL UD PRN PRN Reason: Chest Pain Stop: 11/11/20 07:45 Ondansetron HCl (Ondansetron Inj 2 Mg/Ml 2 Ml Vial) 4 mg IV Q6H PRN PRN Reason: Nausea Stop: 11/11/20 07:45 Pantoprazole Sodium (Pantoprazole 40 Mg Tab) 40 mg PO DAILYBB [facility] Stop: 11/12/20 06:29 Last Admin: 10/14/20 05:52 Dose: 40 mg Documented by: Rosuvastatin Calcium (Rosuvastatin Calcium 20 Mg Tab) 40 mg PO HS [facility] Stop: 11/12/20 20:59 Last Admin: 10/13/20 20:00 Dose: 40 mg Documented by: Ticagrelor (Ticagrelor 90 Mg Tab) 90 mg PO BID [facility] Stop: 11/12/20 03:52 Last Admin: 10/14/20 09:02 Dose: 90 mg Documented by: Vitamin D (Cholecalciferol 1,000 Units 25 Mcg Tab) 1,000 units PO DAILY [facility] Stop: 11/11/20 08:59 Last Admin: 10/14/20 09:03 Dose: 1,000 units Documented by: Zinc Sulfate (Zinc Sulfate 220 Mg Capsule) 220 mg PO BID [facility] Stop: 11/11/20 08:59 Last Admin: 10/14/20 09:02 Dose: 220 mg Documented by: PG Care Time/CCT Total # of Minutes Spent Total Time Spent with Patient: Total time spent is greater than 50% in coordination of care (as documented) at patient's floor/unit and/or counseling patient: Coding Level of Care Code 62973 Subseq Hosp Care Lvl 2 Diagnoses Non-ST elevation (NSTEMI) myocardial infarction I21.4 CAD (coronary artery disease) I25.10 S/P coronary artery stent placement Z95.5 COVID-19 U07.1 Type 2 diabetes mellitus E11.9 Dyslipidemia E78.5 Hypertension I10 GERD (gastroesophageal reflux disease) K21.9 Asthma J45.909 Peripheral neuropathy G62.9 Anxiety F41.9
[2020-10-14] MEDS: ROSUVASTATIN CALCIUM 20 MG TAB PO SCH (20:13)
[2020-10-14] MEDS: hydrOXYzine HCl 25 MG TAB PO PRN (20:13)
[2020-10-15] MEDS ORDERED: ROSUVASTATIN CALCIUM 20 MG TAB PO SCH
[2020-10-15] MEDS ORDERED: CLOPIDOGREL BISULFATE 75 MG TAB PO SCH
[2020-10-15] MEDS: PANTOprazole 40 MG TAB PO SCH (06:41)
[2020-10-15 07:49] LABS: Basophils # (auto) 0.03 K/uL (0-0.2); Basophils % (auto) 0.4 %; Eosinophils % (auto) 1.5 %; Hematocrit (blood only) 40.9 % (42-52); Hemoglobin 13.8 g/dL (14.0-18.0); Immature Granulocytes # (auto) 0.01 K/uL (0.00-0.02); Immature Granulocytes % (auto) 0.1 %; Lymphocytes # (auto) 1.75 K/uL (1.2-3.4); Lymphocytes % (auto) 25.4 %; Mean Corpuscular Hemoglobin 26.6 pg (25-34); Mean Corpuscular Hgb Conc 33.7 g/dL (32-36); Mean Corpuscular Volume 78.8 fL (80-100); Mean Platelet Volume 10.9 fL (7.4-10.4); Monocytes # (auto) 0.53 K/uL (0.11-0.59); Monocytes % (auto) 7.7 %; Neutrophils # (auto) 4.46 K/uL (1.4-6.5); Neutrophils % (auto) 64.9 %; Platelet Count 412 K/uL (130-400); RDW Standard Deviation 39.6 fL (36.4-46.3); Red Blood Count 5.19 M/uL (4.7-6.1); White Blood Count 6.88 K/uL (4.8-10.8)
[2020-10-15 08:14] LABS: Albumin Level 3.5 gm/dl (3.4-5.0); BUN Creatinine Ratio 20.9 (10-20); Calcium 9.5 mg/dl (8.5-10.1); Creatinine Clr Calc Pharmacy 152.7 ml/min; Potassium 4.1 mmol/L (3.5-5.1)
[2020-10-15 08:21] LABS: Phosphorus 4.4 mg/dl (2.5-4.9)
[2020-10-15] MEDS: GABAPENTIN 600 MG TAB PO SCH (08:29)
[2020-10-15] MEDS: lisinopril 40 MG TAB PO SCH (08:30)
[2020-10-15] MEDS: ZINC SULFATE 220 MG CAPSULE PO SCH (08:30)
[2020-10-15] MEDS: amLODIPine BESYLATE 5 MG TAB PO SCH (08:30)
[2020-10-15] MEDS: TICAGRELOR 90 MG TAB PO SCH (08:30)
[2020-10-15] MEDS: CHOLECALCIFEROL 1,000 UNITS 25 MCG TAB PO SCH (08:30)
[2020-10-15] MEDS: ASPIRIN 81 MG ECTAB PO SCH (08:30)
[2020-10-15] MEDS: METOPROLOL TARTRATE 25 MG TAB PO SCH (08:30)
[2020-10-15] MEDS: AMMONIUM LACTATE 12% LOTION 225 GM BTL EXT SCH (08:31)
[2020-10-15] MEDS: INSULIN GLARGINE SOLOSTAR 100 UNITS/ML 3 ML PEN SQ SCH (08:35)
[2020-10-15] MEDS: INSULIN ASPART 100 UNITS/ML 3 ML PEN SC SCH ×2 (08:36→12:22)
--- NOTE | 2020-10-15 11:18 | Electrocardiogram Report ---
Test Reason : Blood Pressure : / mmHG Vent. Rate : 087 BPM Atrial Rate : 087 BPM P-R Int : 134 ms QRS Dur : 092 ms QT Int : 424 ms P-R-T Axes : 045 027 178 degrees QTc Int : 510 ms Normal sinus rhythm Cannot rule out Inferior infarct , age undetermined Prolonged QT Abnormal ECG When compared with ECG of 13-OCT-2020 09:12, Inverted T waves have replaced nonspecific T wave abnormality in Inferior leads QT has shortened Confirmed by Hardik Nova ([id number] on 10/15/2020 11:18:01 AM Referred By: Enrique [facility] Confirmed By:Hardik Nova
--- NOTE | 2020-10-15 11:42 | Discharge Summary ---
Date of Service October 15, 2020 Admission HPI Per Admitting Provider The patient is a 40-year-old male with a past medical history of hypertension, hyperlipidemia, peripheral neuropathy, insulin dependent diabetes mellitus, asthma, GERD, allergic rhinitis and recent diagnosis of Covid 19 infection 4 days ago. He reports his symptoms of Covid infection began about 2 weeks ago, that is primarily were concerning for generalized fatigue and weakness, and body aches and nonproductive cough. Yesterday was the first that he developed chest pain, and as stated above, it did resolve, but did return this morning after awakening. He has a family history of his mother with having had a heart attack, but no other family members with coronary disease. Principal Diagnosis NSTEMI Discharge Exam Constitutional WD/WN, vitals as above comfortable; no acute distress Neck trachea midline, no thyromegaly + facial hair Respiratory normal respiratory effort, lungs clear to auscultation Cardiovascular RRR, no murmur, no edema Gastrointestinal (Abdomen) normal bowel sounds, soft, nontender, no hepatosplenomegaly Musculoskeletal no cyanosis or clubbing, extremities motor strength 5/5 Skin no rashes, warm and dry Neurologic patellar DTR's 2+ bilat, sensation intact and PERRL, EOMI, accommodation nl, no face palsy, no dysarthria Psychiatric A+Ox3, euthymic affect Lymphatic no cervical or axillary lymphadenopathy Discharge Data Allergies Allergy/AdvReac Type Severity Reaction Status Date / Time Penicillins Allergy Unknown ON MED LIST Verified 10/12/20 03:42 Consultations 10/12/20 07:46 Consult Cardiology Routine Consult Case Management - Discharge Planning Routine Procedures Performed Operation Date: 10/12/20 14:00 Actual Procedures p Cath, Left with Cors and Vent - Timothy Marion MD s Cineradiography w/Routine Exam - Wilbur Menard MD s Drug Eluting Stent SGl Vessel - Wilbur Menard MD p Aspiration/PCI w/ERMA for Stemi - Wilbur Menard MD s Drug Eluting Stent each ADDTL Vessel - Wilbur Menard MD Ordered Studies 10/12/20 14:40 CL Cath Imgs for PACS use only Routine Hospital Course (1) Non-ST elevation (NSTEMI) myocardial infarction: troponin bumped from 0.8 to 7.0 on 10/12 gave good story for ongoing angina and then had chest pain at rest echo with hypokinesis of apex left heart cath on 10/12 showed 100% RCA and 70% mid LAD stenosis two drug eluting stents placed by Dr. Menard no chest pain past three days, vitals stable, troponin down to 5 on 10/13, peaked at 12 continue aspirin and Brilinta *spoke with PA at [facility], they will not pay for Brilinta, will change to Plavix 75mg daily on discharge Crestor 40mg daily if Crestor not covered can use Lipitor 80mg instead Lopressor 50mg BID Lisinopril 40mg daily stable from cardiac perspective, make sure he is on DAPT for one year to keep stents open recommend follow up with cardiology, Dr. Marion, in 4-6 weeks (2) CAD (coronary artery disease): severe CAD on cath on 10/12, two ERMA placed in RCA and LAD continue DAPT for a year (aspirin 81mg and Plavix 75mg) statin therapy with Crestor if Crestor is not covered can use Lipitor 80mg instead glucose control (3) S/P coronary artery stent placement: ERMA placed in RCA and LAD on 10/12 Cr is stable after contrast (4) COVID-19: symptoms 2-3 weeks ago, tested positive LAST , 10/05 he is NEGATIVE on 10/12 98% on room air, CXR clear, lungs clear no need for isolation (5) Type 2 diabetes mellitus: Lantus and Novolog SS diabetic diet monitor for hypoglycemia, no episodes (6) Dyslipidemia: Crestor 40mg daily (7) Hypertension: BP stable on lisinopril 40mg daily, metoprolol 50mg daily (8) GERD (gastroesophageal reflux disease): Change omeprazole to pantoprazole due to Plavix use (9) Asthma: Continue Xopenex HFA 2 puffs every 6 hours as needed no wheezing on exam (10) Peripheral neuropathy: Continue gabapentin 1200 mg p.o. twice daily (11) Anxiety: started on Vistaril 50mg q6 PRN, helped his anxiety but makes him drowsy suggest trying an SSRI, defer to provider at [facility] Total Time Total Time Spent Total Time Spent (In Minutes): 35 minutes Total Time Includes: Examination of the Patient, Discharge Planning, Medication Reconciliation and Communication With Other Providers (PA at [facility], gave sign out) Discharge Plan Discharge Items [facility] Reason For Visit: NON-STEMI,COVID MYOCARDITIS Discharge Diagnosis: NSTEMI Coronary artery disease s/p coronary artery stenting Condition on Discharge: Good Goals: medical management of coronary disease Activity: Per Instructions section Lifting: None Bathing: No limitations Exercise/Sports: Gradually increase as tolerated Exercise Comment: no strenuous activity for two weeks Weightbearing: Full weightbearing Non-emergency contact: Primary Care Provider Call non-emergency contact if: you have any medication questions and your symptoms worsen Follow-up/Referrals: Timothy Marion MD [Physician] - [facility]-6 weeks[facility] - Diet: Carb Consistent or DM2 and Heart Healthy Addtl Attending Provider Instructions: Medications: several changes made due to findings of coronary disease with stents placed - PLAVIX: 75mg daily, ideally he should be on Brilinta 90mg BID but if this is not covered by [facility] formulary then Plavix 75mg daily is the replacement needs to take for one year with aspirin - ASPIRIN: 81mg daily, take indefinitely - METOPROLOL: started, titrated up to 50mg twice a day, might be able to titrate up further, stopped HCTZ and Amlodipine to titrate this upward, want to control heart rate - CRESTOR: replaces Lipitor as it is more effective for dyslipidemia and coronary disease, plaque stabilization - PROTONIX: cannot take omeprazole with Plavix due to interaction, if he needs to be on PPI then he needs pantoprazole - VISTARIL: started for anxiety, take PRN, defer to provider at [facility] for starting a daily medication like an SSRI, he says his anxiety has been bad for a few months, now worse after ME - NITRO: take as needed for chest pain see details of admission in discharge summary Pending Studies at Discharge: No Stand-Alone Forms: [employer] Skilled Items Patient informed of condition?: Yes Discharge Level of Care: Other Communicable Disease: No Discharge Prognosis: Stable Lines: None Urinary Catheter: No Medications and DC Order Prescriptions: New nitroglycerin [Nitrostat] 0.4 mg Tablet, Sublingual 0.4 mg sublingual UD PRN (Reason: chest pain) 30 Days Qty: 60 RF: 0 metoprolol tartrate 25 mg Tablet 50 mg PO BID 30 Days Qty: 120 RF: 3 aspirin 81 mg Tablet,Delayed Release (Dr/Ec) 81 mg PO QAM 30 Days Qty: 30 RF: 3 pantoprazole 40 mg Tablet,Delayed Release (Dr/Ec) 40 mg PO DAILYBB 30 Days Qty: 30 RF: 3 hydroxyzine HCl 25 mg Tablet 50 mg PO Q6 PRN (Reason: anxiety) 30 Days Qty: 30 RF: 0 rosuvastatin [Crestor] 20 mg Tablet 40 mg PO HS 30 Days Qty: 60 RF: 3 clopidogrel [Plavix] 75 mg tablet 75 mg PO DAILY 30 Days Qty: 30 RF: 3 Continued gabapentin 600 mg Tablet 1,200 mg PO BID RF: 0 Lantus U-100 Insulin 100 unit/mL Solution 10 unit SUBCUT QAM RF: 0 ondansetron HCl [Zofran] 4 mg Tablet 4 mg PO TID PRN (Reason: NAUSEA/VOMITING) RF: 0 acetaminophen [Tylenol Extra Strength] 500 mg Tablet 500 mg PO TID PRN (Reason: Pain) RF: 0 Novolin R Regular U-100 Insuln 100 unit/mL Solution 0 unit SUBCUT AC RF: 0 ibuprofen 400 mg Tablet 400 mg PO TID PRN (Reason: COVID SYMPTOMS) RF: 0 Novolin N NPH U-100 Insulin 100 unit/mL Suspension See Rx Instructions .ROUTE .COMPLEX RF: 0 ammonium lactate 12 % Cream 1 applic TOPICAL BID RF: 0 lisinopril 40 mg Tablet 40 mg PO DAILY RF: 0 cholecalciferol (vitamin D3) [Vitamin D3] 25 mcg (1,000 unit) Capsule 25 mcg PO DAILY RF: 0 guaifenesin [Mucosa] 400 mg Tablet 400 mg PO TID PRN (Reason: Cold Symptoms) RF: 0 oxymetazoline 0.05 % [place],Non-Aerosol 2 spray INTRANASAL Q12H PRN (Reason: Nasal Congestion) RF: 0 levalbuterol tartrate [Xopenex HFA] 45 mcg/actuation Hfa Aerosol Inhaler 2 inh INHALATION Q6H PRN (Reason: Shortness Of Breath) RF: 0 zinc sulfate [Orazinc] 220 (50) mg Capsule 220 mg PO BID RF: 0 Discontinued atorvastatin 80 mg Tablet 80 mg PO HS RF: 0 amlodipine 10 mg Tablet 10 mg PO DAILY RF: 0 hydrochlorothiazide 12.5 mg Tablet 12.5 mg PO QAM RF: 0 omeprazole 20 mg Tablet,Delayed Release (Dr/Ec) 20 mg PO DAILYBB RF: 0 Discharge Orders: Discharge Order (Routine); Ordered 10/15/20 Ordered By: Favio Sevilla Admission Data Admit Date/Time: 10/12/20 05:34 Attending Provider: Favio Sevilla Admit Provider: Cesar Cortes Primary Care Provider: Enrique GOLDEN Other Providers: Timothy Marion. Coding Level of Care Code D/C Day Management >30 mins Diagnoses Non-ST elevation (NSTEMI) myocardial infarction I21.4 CAD (coronary artery disease) I25.10 S/P coronary artery stent placement Z95.5 COVID-19 U07.1 Type 2 diabetes mellitus E11.9 Dyslipidemia E78.5 Hypertension I10 GERD (gastroesophageal reflux disease) K21.9 Asthma J45.909 Peripheral neuropathy G62.9 Anxiety F41.9
[2020-10-15] MEDS: hydrOXYzine HCl 25 MG TAB PO PRN (14:06)
== END 2020-10-15 14:10 | DRG 246 ==
LOC: ED 03:31 → 2S 05:34 → SUATTDRO 05:34 → 2S 06:41